=== PATIENT | female | born 1955 | race Caucasian/White ===

== ENCOUNTER 2021-01-10 08:28 | Outpatient (REF) | payer MEDICARE, BC, SELFPAY ==
--- NOTE | ~2021-01-10 | XR_ITS ---
EXAMINATION: XR SHOULDER, RIGHT CLINICAL INFORMATION: Right shoulder pain COMPARISON: None TECHNIQUE: The right shoulder is imaged in 4 views. FINDINGS: There is no fracture or dislocation. The glenohumeral joint appears normal. There is small spur inferior medial humeral head. No glenohumeral joint narrowing or erosive change. The acromioclavicular alignment is normal. There are no visible rotator cuff calcifications. XR/XR shoulder RT min 2V IMPRESSION: No joint narrowing or rotator cuff calcifications.
== END 2021-01-10 08:29 | disposition home or self-care (01) ==
LOC: HO.HMGCX 08:28
PROVIDERS: PCP Internal Medicine; Visit Provider Internal Medicine
DX: M25.511 Pain in right shoulder (principal)
CPT/HCPCS: 73030

== ENCOUNTER 2021-04-07 07:20 | Outpatient (REF) | payer MEDICARE, BC, SELFPAY ==
--- NOTE | ~2021-04-07 | MM_ITS ---
EXAMINATION: MM SCREENING DIGITAL BREAST TOMOSYNTHESIS, BILATERAL CLINICAL INFORMATION: Screening. Asymptomatic. The lifetime risk of breast cancer based on the Tyrer-Cuzick Model is 4%. COMPARISON: Mammography: 04/05/2020, 04/03/2019, 09/28/2018 TECHNIQUE: Digital breast tomosynthesis is performed in both the craniocaudal and mediolateral oblique views along with computer-aided detection (CAD). Synthesized 2D images are generated from the tomosynthesis. FINDINGS: There are scattered areas of fibroglandular density (ACR BI-RADS breast composition Category b). There are no significant masses, abnormal calcifications, or other abnormalities. Parenchymal pattern is similar to prior studies. There is no developing density. No abnormal calcifications. No significant changes. MM/MM tomosynthesis screening BI IMPRESSION: No mammographic evidence of malignancy. ASSESSMENT: BI-RADS 1: Negative RECOMMENDATION: Routine annual mammography screening. This patient's information was entered into a reminder system with a target due date for their next mammogram.
== END 2021-04-07 07:21 | disposition home or self-care (01) ==
LOC: HO.MAMMO 07:20
PROVIDERS: PCP Internal Medicine; Visit Provider Internal Medicine
DX: Z12.31 Encounter for screening mammogram for malignant neoplasm of breast (principal)
CPT/HCPCS: 77063; 77067

== ENCOUNTER 2021-04-29 08:37 | Outpatient (REF) | payer MEDICARE, BC, SELFPAY ==
[2021-04-29 11:19] LABS: Glucose Urine UA NEG (NEG); Leukocyte Esterase Urine NEG (NEG); Nitrite Urine NEG (NEG); Specific Gravity - Urine <= 1.005 (1.005-1.025); Urine Blood NEG (NEG); Urine Ketones NEG (NEG); Urine Protein NEG (NEG-TRACE)
[2021-04-29 11:22] LABS: Appearance Urine CLEAR; Color Urine YELLOW
[2021-04-29 11:23] LABS: Hematocrit 42.2 % (37-47); Hemoglobin 13.8 g/dl (12.0-16.0); Mean Corpuscular HGB Conc 32.7 g/dl (31.0-35.0); Mean Corpuscular Hemoglobin 30.3 pg (27.0-33.0); Mean Corpuscular Volume 92.7 fL (80-98); Platelet Count 375 X10*3/uL (160-400); Red Blood Count 4.55 X10*6/uL (4.20-5.50); Red Cell Distribution Width 12.4 % (11.0-16.0); White Blood Count 7.2 X10*3/uL (4.8-10.8)
[2021-04-29 11:38] LABS: Alanine Aminotransferase 16 U/L (0-31); Albumin Level 4.3 g/dL (3.5-5.0); Alkaline Phosphatase 75 U/L (39-117); Anion Gap 12 (12-20); Aspartate Amino Transferase 23 U/L (5-31); Bilirubin Total 0.7 mg/dL (0.0-1.0); Blood Urea Nitrogen 11 mg/dL (9-16); Calcium 9.1 mg/dL (8.4-10.2); Carbon Dioxide 27 mmol/L (22-29); Chloride 101 mmol/L (96-108); Cholesterol 217 mg/dL; Estimated Glomerular Filt Rate > 60; Glucose Fasting 87 mg/dL (60-99); HDL Cholesterol 47 mg/dL; LDL Cholesterol Calculated 153 mg/dl; Potassium 4.6 mmol/L (3.3-5.1); Sodium 135 mmol/L (135-145); Total Protein 7.2 g/dL (6.5-8.0); Triglycerides 88 mg/dL
== END 2021-04-29 08:38 | disposition home or self-care (01) ==
LOC: HO.HMGCLDS 08:37
PROVIDERS: PCP Internal Medicine; Visit Provider Internal Medicine
DX: E55.9 Vitamin D deficiency, unspecified (principal); E78.5 Hyperlipidemia, unspecified
CPT/HCPCS: 36415; 80053; 80061; 81003; 85027

== ENCOUNTER 2021-05-05 11:21 | Outpatient (REF) | payer MEDICARE, BC, SELFPAY ==
[2021-05-08 13:17] LABS: HPV mRNA E6/E7 Not Detected (Not Detected)
== END 2021-05-05 11:22 | disposition home or self-care (01) ==
LOC: HO.LAB 11:21
PROVIDERS: Visit Provider Internal Medicine
DX: Z01.419 Encounter for gynecological examination (general) (routine) without abnormal findings (principal); E78.5 Hyperlipidemia, unspecified; E55.9 Vitamin D deficiency, unspecified; Z78.0 Asymptomatic menopausal state
CPT/HCPCS: 87624; 88142

== ENCOUNTER 2021-06-04 08:11 | Outpatient (REF) | payer MEDICARE, BC, SELFPAY ==
--- NOTE | ~2021-06-04 | MM_ITS ---
EXAMINATION: BONE DENSITOMETRY CLINICAL INDICATION: Menopause. COMPARISON: This is the patient's baseline examination. TECHNIQUE: Using a [employer] DXA System (software version: 13.1) manufactured by [employer], dual-energy x-ray absorptiometry was performed of the lumbar spine and left hip. The images are of good technical quality. Summary results are attached. FINDINGS: AP SPINE L1-L4: BMD 1.140 g/cm2, Z-score 1.6, T-score -0.3, normal. LEFT FEMUR, NECK: BMD 0.783 g/cm2, Z-score -0.1, T-score -1.8, osteopenia. LEFT FEMUR, TOTAL: BMD 0.900 g/cm2, Z-score 0.7, T-score -0.9, normal. IDENTIFIED RISK FACTORS: Menopause. HISTORY OF FRACTURE: None listed. MEDICATIONS: Calcium or multivitamin. Vitamin D. MM/XR DEXA axial skeleton IMPRESSION: 1. DIAGNOSIS: Osteopenia based on the lowest T-score value of -1.8 in the femoral neck applying World Health Organization criteria. 2. 10-YEAR FRACTURE RISK PREDICTION, FRAX: Major osteoporotic fracture (clinical spine, forearm, hip or shoulder) 10.6%. Hip fracture 1.7%. 3. Treatment Recommendations: NOF guidelines recommend consideration for treatment in postmenopausal women and men age 50 and older presenting with the following: -A hip or vertebral (clinical or morphometric) fracture. -T-score less than or equal to -2.5 at the femoral neck or spine after appropriate evaluation to exclude secondary causes. -Low bone mass at the hip or spine and a 10-year fracture probability by FRAX of greater than or equal to 3% for hip fracture or greater than or equal to 20% for major osteoporotic fracture based on the [place] adapted WHO algorithm. 4. Other Recommendations: All treatment decisions require clinical judgment and consideration of individual patient factors, including patient preferences, comorbidities, previous drug use, risk factors not captured in the FRAX model (e.g. frailty, falls, vitamin D deficiency, increased bone turnover, interval significant decline in bone density) and possible under or overestimation of fracture risk by FRAX. Additional medical evaluation for secondary cause of low bone mineral density may be appropriate. FUTURE SCAN RECOMMENDATION: People with diagnosed cases of osteoporosis or at high risk for fracture should have regular bone mineral density tests. For patients eligible for Medicare, routine testing is allowed once every 2 years. The testing frequency can be increased to one year for patients who have rapidly progressing disease, those who are receiving or discontinuing medical therapy to restore bone mass, or have additional risk factors.
== END 2021-06-04 08:12 | disposition home or self-care (01) ==
LOC: HO.MAMMO 08:11
PROVIDERS: Visit Provider Internal Medicine
DX: Z13.820 Encounter for screening for osteoporosis (principal); E78.5 Hyperlipidemia, unspecified; Z78.0 Asymptomatic menopausal state
CPT/HCPCS: 77080

== ENCOUNTER → 2021-08-05 09:59 | Outpatient (BNVA) | payer MEDICARE, BC, SELFPAY | PROVIDERS: Visit Provider Physician Assistant | DX: M75.101 Unspecified rotator cuff tear or rupture of right shoulder, not specified as traumatic (principal) | CPT/HCPCS: 99202 ==

== ENCOUNTER 2021-08-12 07:28 | Outpatient (REF) | payer MEDICARE, BC, SELFPAY ==
--- NOTE | ~2021-08-12 | MR_ITS ---
EXAMINATION: MR SHOULDER WITHOUT CONTRAST, RIGHT CLINICAL INFORMATION: Right shoulder pain with pain radiating to the right elbow. Evaluate for a rotator cuff tendon tear. COMPARISON: Right shoulder radiographs dated 01/10/2021 TECHNIQUE: MRI of the shoulder without contrast was performed on a high-field scanner. FINDINGS: ROTATOR CUFF: Complete full-thickness tear of the supraspinatus tendon with anterior full-thickness tearing extending through the majority of the distal infraspinatus tendon. Overall, tearing measures 3.2 x 3.1 cm (AP x ML) with the torn tendon fibers retracted proximal to the humeral head apex. There are posterior infraspinatus tendon fibers which remain intact. Moderate subscapularis tendinosis with distal articular surface and intrasubstance partial tearing measuring 3.4 cm in ML dimension. No muscle atrophy or fatty infiltration. BICEPS: Medial subluxation of the proximal long head biceps tendon through the subscapularis tendon tear. The tendon is significantly thickened and irregular, consistent with prominent tendinosis and longitudinal partial tearing. No full-thickness tendon tear or retraction. CORACOACROMIAL ARCH: The undersurface of the acromion is curved with subacromial spurring. Mild acromioclavicular osteoarthritis. LABRUM/CAPSULE: Normal. GLENOHUMERAL JOINT/MARROW: Humeral head and glenoid articular cartilage signal heterogeneity and partial-thickness loss. Small marginal osteophytes. Small joint effusion. MR/MR shoulder RT wo con IMPRESSION: 1. Complete, full-thickness tear of the supraspinatus tendon with anterior full-thickness tearing of the infraspinatus tendon measuring up to 3.2 x 3.1 cm (AP x ML). The torn tendon fibers are retracted proximal to the humeral head apex. 2. Moderate subscapularis tendinosis with distal articular surface and intrasubstance partial tearing measuring 3.4 cm in ML dimension. 3. Medial subluxation of the proximal long head biceps tendon through the subscapularis tendon tear with prominent tendinosis and longitudinal partial tearing. 4. Mild acromioclavicular osteoarthritis with small subacromial spurs. 5. Mild glenohumeral osteoarthritis. Small joint effusion.
== END 2021-08-12 07:29 | disposition home or self-care (01) ==
LOC: HO.MRI 07:28
PROVIDERS: PCP Internal Medicine; Visit Provider Physician Assistant
DX: M75.101 Unspecified rotator cuff tear or rupture of right shoulder, not specified as traumatic (principal)
CPT/HCPCS: 73221

== ENCOUNTER → 2021-08-29 10:24 | Outpatient (BNVA) | payer MEDICARE, BC, SELFPAY | PROVIDERS: PCP Internal Medicine; Visit Provider Physician Assistant | DX: M75.101 Unspecified rotator cuff tear or rupture of right shoulder, not specified as traumatic (principal); M12.811 Other specific arthropathies, not elsewhere classified, right shoulder | CPT/HCPCS: 99212 ==

== ENCOUNTER 2021-09-17 05:57 | Day surgery (SDC) | payer MEDICARE, BC, SELFPAY ==
[2021-09-10 12:22] VITALS: BMI 24.2
--- NOTE | 2021-09-16 08:53 | HO.ANESPROP2 ---
Documented by User: Loree Haq NP 09/16/21 08:55 HPI - Anesthesia Eval Consult details Narrative: 66yo F for Right Shoulder Rotator Cuff Repair PMFSH Active Problems Active Problems: All Active Problems (Updated 08/29/21 @ 12:29 by Vear Godinez PA-C) Abrasion of breast (Acute) Painful arc syndrome of right shoulder (Acute) Rotator cuff tear arthropathy of right shoulder (Acute) Annual physical exam (Acute) Postmenopausal (Acute) Shoulder pain, right (Acute) Mammogram normal (Acute) Normal Pap smear (Acute) Vitamin D deficiency (Acute) Hyperlipemia (Acute) Dysplastic nevi (Acute) Past Medical History Medical History (Updated 08/29/21 @ 12:29 by Vera Godinez PA-C) Annual physical exam Dysplastic nevi Hyperlipemia Mammogram normal Normal Pap smear Postmenopausal Shoulder pain, right Vitamin D deficiency Family History Family History Father No problems noted. Mother Ovarian cancer Surgical History Surgical History (Updated 09/10/21 @ 12:11 by Connie Marquez RN) H/O colonoscopy S/P bunionectomy Social History Social History Housing: House Alcohol intake: never Patient Tobacco Use Status: Never used Tobacco e-Cigarette/Vaping Use: Never Used Use of substances other than those prescribed or required for medical reasons: No Advance Directives Information Provided: Yes (informational brochure mailed) Advance Directives on File: No Current occupational status: retired Current occupation: rt handed Meds Allergies Allergy/AdvReac Type Severity Reaction Status Date / Time No Known Allergies Allergy Verified 08/29/21 10:33 [No Known Allergies*] Home Medications Medication Instructions Recorded Confirmed Last Taken Type cholecalciferol (vitamin D3) 25 25 mcg PO DAILY 07/31/20 09/10/21 Unknown History mcg (1,000 unit) capsule vitamin B complex (B 1 tab PO DAILY 01/10/21 09/10/21 Unknown History Complex-Vitamin B12) aspirin 81 mg tablet,delayed 81 mg PO DAILY 05/05/21 09/10/21 Unknown History release omega 6-hlm-bqz-fish oil 100 1 cap PO DAILY 08/05/21 09/10/21 Unknown History mg-160 mg-1,000 mg capsule (Fish Oil) Exam Exam Date and Time: September 16, 2021 0853 Height,Weight and Vital Signs: Height 5 ft Weight 56.245 kg Pertinent Lab Results Pertinent Lab Results: Laboratory Tests 04/29/21 04/29/21 08:48 08:48 WBC 7.2 Hgb 13.8 Hct 42.2 Plt Count 375 Sodium 135 Potassium 4.6 Chloride 101 Carbon Dioxide 27 BUN 11 Creatinine 0.69 Assessment and Plan Assessment Anesthesia Assessment: Chart Reviewed Documented by User: Greg Espitia MD 09/17/21 07:14 PMFSH Past Medical History Medical History (Updated 08/29/21 @ 12:29 by Vera Godinez PA-C) Annual physical exam Dysplastic nevi Hyperlipemia Mammogram normal Normal Pap smear Postmenopausal Shoulder pain, right Vitamin D deficiency Family History Family History Father No problems noted. Mother Ovarian cancer Surgical History Surgical History (Updated 09/10/21 @ 12:11 by Connie Marquez RN) H/O colonoscopy S/P bunionectomy Social History Social History Housing: House Alcohol intake: never Patient Tobacco Use Status: Never used Tobacco e-Cigarette/Vaping Use: Never Used Use of substances other than those prescribed or required for medical reasons: No Advance Directives Information Provided: Yes (informational brochure mailed) Advance Directives on File: No Current occupational status: retired Current occupation: rt handed Meds Allergies Allergy/AdvReac Type Severity Reaction Status Date / Time No Known Allergies Allergy Verified 08/29/21 10:33 [No Known Allergies*] Home Medications Medication Instructions Recorded Confirmed Last Taken Type cholecalciferol (vitamin D3) 25 25 mcg PO DAILY 07/31/20 09/10/21 Unknown History mcg (1,000 unit) capsule vitamin B complex (B 1 tab PO DAILY 01/10/21 09/10/21 Unknown History Complex-Vitamin B12) aspirin 81 mg tablet,delayed 81 mg PO DAILY 05/05/21 09/10/21 Unknown History release omega 0-jtl-wiz-fish oil 100 1 cap PO DAILY 08/05/21 09/10/21 Unknown History mg-160 mg-1,000 mg capsule (Fish Oil) Exam Airway Mallampati Class: II TM Dist: >3cm Neck ROM: Full
[2021-09-17] VITALS (8 sets, daily range): BP systolic 146–164; BP diastolic 65–74; PULSE 66–77; RESP 12–18; TEMP 36.2–36.4; O2SAT 95–99
[2021-09-17] MEDS: Lactated Ringers 1,000 ML 100 ML IVCONT (06:34)
--- NOTE | 2021-09-17 09:52 | MHC.SHP ---
Pre-Procedural Eval Section A Date of Service: 09/17/21 The patient is an INPATIENT: No Changes since office visit: Yes Patient answered all questions; No Cold of Flu in the past 2 weeks, No New Medical Problems and No Changes in Medication The History & Physical has been completed within 30 days and I have reviewed it.: Yes Section B Chief Complaint: rotator cuff tear Allergies: Allergies Allergy/AdvReac Type Severity Reaction Status Date / Time No Known Allergies Allergy Verified 08/29/21 10:33 [No Known Allergies*] Plan I have reviewed the history and physical and performed a pertinent physical examination on my patient. No changes have occurred unless specified.
--- NOTE | 2021-09-17 09:52 | PM.OP ---
Brief Operative Note Date of Service: 09/17/21 Pre-op diagnosis: right rtc tear Post-op diagnosis: other (1)supraspinatus and infraspinatus tear 2) subscapularis tear 3) SLAP tear) Procedure: 1) Supraspinatus and infraspinatus repair 2)Subscapularis repair 3) Biceps tenotomy 4) SAD 5)Circumerential labral debridement Implants: [employer] 4.75 helacoil double loaded suture anchor x2; 5.0 Knotleess helacoil x3; looped suture implant (styrker); suture tape x2 Surgeon: Gavin Torres MD Anesthesia: GETA and regional Was an Company Laborer used for this Procedure?: Yes Company Laborer: Vera Godinez Estimated blood loss (mL): 0 Tourniquet time (min): 0 IV fluids (mL): 1,000 Pathology: none sent Condition: stable Disposition: PACU
--- NOTE | 2021-09-17 09:56 | W.PM.OPN ---
Operative Note Operative Note Date of Service: 09/17/21 Narrative: Pre-op diagnosis: right rtc tear Post-op diagnosis: other (1)supraspinatus and infraspinatus tear 2) subscapularis tear 3) SLAP tear) Procedure: 1) Supraspinatus and infraspinatus repair 2)Subscapularis repair 3) Biceps tenotomy 4) SAD 5)Circumerential labral debridement Implants: [employer]hew 4.75 helacoil double loaded suture anchor x2; 5.0 Knotless helacoil x3; looped suture implant (styrker); suture tape x2 Surgeon: Gavin Torres MD Anesthesia: GETA and regional Was an User Experience Architect used for this Procedure?: Yes User Experience Architect: Vera Godinez Estimated blood loss (mL): 0 Tourniquet time (min): 0 IV fluids (mL): 1,000 Pathology: none sent Condition: stable Disposition: PACU Procedure in detail: Patient was brought to the operating room and placed the the beach chair position. All bony prominences were well padded and the limb was prepped and draped in standard sterile fashion. A time out was called to identify proper site, proper procedure and proper surgeon. IV antibiotics per weight were administered. I began by making a posterolateral stab incision with a 15 blade. A blunt trochar was placed into the glenohumeral joint and I insufflated the joint with saline and a 30 degree arthroscope was placed. I established an outside- in anterior portal just distal to the biceps tendon. I then began my inspection of the glenohumeral joint. There was mild osteoarthritis of the glenohumeral joint with no thigh focal high-grade cartilage lesions. She had a superior labral tear with 75% of the biceps anchor torn at. This tearing extended down into the subscapularis insertion where there was a full-thickness tear of the subscapularis as well. I debrided extraneous tissue and circumferentially debrided the labrum. There was a large undersurface supraspinatus / infraspinatus tear as well. a performed a biceps tenotomy and mobilize the subscapularis with superior anterior and posterior lysis of adhesions. Tear was mobile and I was able to reapproximate the insertion site. A nadira was used to debride this down to bleeding bone. I placed 2 suture tapes through the body of the subscapularis and placed a 5.0 helical oil suture at the insertion site and inserted this in standard fashion while the arm was slight internally rotated. I had excellent re-approximation of the anatomy of the subscapularis and was satisfied with the repair. I then removed the trochar and entered the subacromial space. A direct lateral portal was then established and I performed a bursectomy. The cuff was then examined. There was a supraspinatus and infraspinatus full-thickness retracted tear that was mobile. I then placed 2 4.75 medial row Helacoil double loaded suture anchors. These sutures were then passed through the cuff with a scorpion and then a cross bridge technique to 2 lateral 5.0 knotless suture anchors. A nadira was used to debride the footprint down to bleeding bone prior to this. I was extremely satisfied with the repair and a 4-5 mm sub actromial decompression was perfromed.Once I was satisfied with the repair final images were captured and I removed all instrumentation. Portals were closed with nylon. Patient was placed in an abduction sling, extubated and brought to the recovery room in stable condition. There were no known complications.
[2021-09-17] MEDS: oxyCODONE HCl Immed Release 5 MG TABLET PO (10:49)
== END 2021-09-17 11:50 | disposition home or self-care (01) ==
PROVIDERS: PCP Internal Medicine; Visit Provider Orthopaedic Surgery
PROC: (CPT 29827; principal; 2021-09-17 07:30)
DX: M75.101 Unspecified rotator cuff tear or rupture of right shoulder, not specified as traumatic (principal); M12.811 Other specific arthropathies, not elsewhere classified, right shoulder; M25.511 Pain in right shoulder; E55.9 Vitamin D deficiency, unspecified; D23.9 Other benign neoplasm of skin, unspecified; Z79.82 Long term (current) use of aspirin; Z79.899 Other long term (current) drug therapy
CPT/HCPCS: 29827; 29826; C1713; J0171; J0690; J1100; J2250; J2405; J3010

== ENCOUNTER → 2021-09-29 08:32 | Outpatient (BNVA) | payer MEDICARE, BC, SELFPAY | PROVIDERS: PCP Internal Medicine; Visit Provider Physician Assistant | DX: Z98.890 Other specified postprocedural states (principal) | CPT/HCPCS: 99212 ==

== ENCOUNTER 2021-10-21 08:45 | Outpatient (REF) | payer MEDICARE, BC, SELFPAY ==
[2021-10-21 12:03] LABS: Cholesterol 240 mg/dL; HDL Cholesterol 51 mg/dL; LDL Cholesterol Calculated 170 mg/dl; Triglycerides 99 mg/dL
== END 2021-10-21 08:46 | disposition home or self-care (01) ==
LOC: HO.HMGCLDS 08:45
PROVIDERS: PCP Internal Medicine; Visit Provider Internal Medicine
DX: E78.5 Hyperlipidemia, unspecified (principal)
CPT/HCPCS: 36415; 80061

== ENCOUNTER → 2021-10-27 08:26 | Outpatient (BNVA) | payer MEDICARE, BC, SELFPAY | PROVIDERS: PCP Internal Medicine; Visit Provider Physician Assistant | DX: Z48.89 Encounter for other specified surgical aftercare (principal); Z98.890 Other specified postprocedural states | CPT/HCPCS: 99212 ==

== ENCOUNTER 2021-12-17 10:00 | Outpatient (RCR) | payer MEDICARE, BC, SELFPAY ==
--- NOTE | 2021-09-22 14:44 | MHC.PT.EP ---
[facility] [place] Office [place] Office [place] Office [address] Monalisa Simmons [address] [phone] F: [phone] F: [phone] F: [phone] F: [phone] Physical Therapy Plan of Care Date of Evaluation: Date of Surgery: 09/17/21 Diagnosis: RIGHT ROTATOR CUFF REPAIR (SUPRASPINATUS, INFRASPINATUS, SUB SCAP REPAIR, BICEPS TENOTOMY, LABRAL DEBRIDEMENT AND SAD) Assessment: Pt 66 YO FEMALE WHO PRESENTS S/P RCR 09/17. UPON EXAM SHE DEMONSTRATES EXPECTED IMPAIRMENTS OF DECREASED ROM, DECREASED STRENGTH, ALTERED POSTURE AND POSITIONING WELL INCREASED PAIN AND SWELLING. FUNCTIONAL LIMITATIONS INCLUDE DECREASED ABILITY TO PERFORM LIFTING, REACHING, PUSHING, PULLING AND CARRYING. SHE HAVING DIFFICULTY PERFORMING HOMEMAKING AND SELF CARE TASKS, FITNESS AND RECREATIONAL ACTIVITIES, SHE REPORTS DISRUPTED SLEEP. A PT IS A GOOD CANDIDATE FOR SKILLED PT DUE TO AGE, POTENTIAL REMEDIATION OF IMPAIRMENTS, TYPICAL DISEASE/CONDITION PROGRESSION AND PROGNOSIS, COMORBIDITIES, AND MOTIVATION. PT WOULD BENEFIT FROM TAILORED PROGRAM OF THERAPEUTIC ACTIVITIES, FUNCTIONAL TRAINING, GAIT TRAINING, POSTURAL EDUCATION, NEUROMUSCULAR RE-EDUCATION, AND MODALITIES NEEDED. Frequency and Duration: The patient will be seen 2 X WEEK FOR 12 WEEKS Short Term Goals: INITIATE HEP AND PROMOTE SELF MANAGEMENT OF SYMPTOMS IN 2 WEEKS Nursing Home Goals: Full, pain free ROM in weeks Full UE strength, pain free in 5 weeks To perform computer and work tasks without restriction and pain no greater than 2/10 [address] at minimum of 5# into cabinet at shoulder height in 5 weeks Treatment Plan: Modalities to reduce pain, spasms and effusion. Manual therapy to restore motion and function. Therapeutic exercise to improve strength and flexibility. Neuromuscular re-education for posture and balance. Therapeutic activities to return to functional activities of daily living. Electronically signed by: TALAT BRIZUELA PT, DPT Please sign and return to therapist. Thank you for your referral.
--- NOTE | 2021-12-17 10:53 | MHC.PT.DC ---
[facility] [place] Office [place] Office [place] Office [address] Monalisa Simmons [address] [phone] F: [phone] F: [phone] F: [phone] F: [phone] Physical Therapy Discharge Report Diagnosis: RIGHT ROTATOR CUFF REPAIR (SUPRASPINATUS, INFRASPINATUS, SUB SCAP REPAIR, BICEPS TENOTOMY, LABRAL DEBRIDEMENT AND SAD) Date of Surgery: 09/17/21 Date of Evaluation: 09/22/21 Date of Discharge: 12/17/21 Treatments to Date: 21 Cancellations to Date: 0 No Shows to Date: 0 Discharge Status: Achieved Goals Improved Function Independent with HEP Discharge Summary: 12/17: Debra has had a very successful round of therapy. She demos WFL ROM and strength. AROM is WFL however she needs to continue to strengthen which I educated her on. She is very independent and functional. At this time she does not have more than a 1/10 for pain. Patient has returned to her baseline and is I in ADLs and IADLs. SPADI score has improved to a 1/50 for pain and 1/80 for disability. DC to HEP Electronically signed by: Jeannie Lopez PT Please sign and return to therapist. Thank you for your referral.
== END 2021-12-17 10:54 | disposition home or self-care (01) ==
LOC: HO.PTCHIC 10:00
PROVIDERS: Visit Provider Physician Assistant
DX: M75.101 Unspecified rotator cuff tear or rupture of right shoulder, not specified as traumatic (principal); M12.811 Other specific arthropathies, not elsewhere classified, right shoulder
CPT/HCPCS: 97110; 97140; 97161; 97530

== ENCOUNTER → 2021-12-22 09:11 | Outpatient (BNVA) | payer MEDICARE, BC, SELFPAY | PROVIDERS: PCP Internal Medicine; Visit Provider Physician Assistant | DX: Z09 Encounter for follow-up examination after completed treatment for conditions other than malignant neoplasm (principal) | CPT/HCPCS: 99212 ==

== ENCOUNTER 2022-04-08 07:24 | Outpatient (REF) | payer MEDICARE, BC, SELFPAY ==
--- NOTE | ~2022-04-08 | MM_ITS ---
EXAMINATION: MM SCREENING DIGITAL BREAST TOMOSYNTHESIS, BILATERAL CLINICAL INFORMATION: Screening. Asymptomatic. The lifetime risk of breast cancer based on the Tyrer-Cuzick Model is 4%. COMPARISON: Mammography: 04/07/2021, 04/05/2020, 04/03/2019 TECHNIQUE: Digital breast tomosynthesis is performed in both the craniocaudal and mediolateral oblique views along with computer-aided detection (CAD). Synthesized 2D images are generated from the tomosynthesis. Additional bilateral CC views are provided. FINDINGS: There are scattered areas of fibroglandular density (ACR BI-RADS breast composition Category b). There are no significant masses, abnormal calcifications, or other abnormalities. There is no developing density or architectural abnormality. No significant changes from prior studies. The axilla and skin contours are unremarkable. MM/MM tomosynthesis screening BI IMPRESSION: No mammographic evidence of malignancy. ASSESSMENT: BI-RADS 1: Negative RECOMMENDATION: Routine annual mammography screening. This patient's information was entered into a reminder system with a target due date for their next mammogram.
== END 2022-04-08 07:25 | disposition home or self-care (01) ==
LOC: HO.MAMMO 07:24
PROVIDERS: Visit Provider Internal Medicine
DX: Z12.31 Encounter for screening mammogram for malignant neoplasm of breast (principal)
CPT/HCPCS: 77063; 77067

== ENCOUNTER 2022-05-05 07:52 | Outpatient (REF) | payer MEDICARE, BC, SELFPAY ==
[2022-05-05 11:32] LABS: Hematocrit 43.1 % (37.0-47.0); Mean Corpuscular HGB Conc 32.5 g/dl (31.0-35.0); Mean Corpuscular Hemoglobin 30.3 pg (27.0-33.0); Mean Corpuscular Volume 93.3 fL (80.0-98.0); Platelet Count 403 X10*3/uL (160-400); Red Blood Count 4.62 X10*6/uL (4.20-5.50); Red Cell Distribution Width 12.6 % (11.0-16.0); White Blood Count 5.2 X10*3/uL (4.8-10.8)
[2022-05-05 11:41] LABS: Alanine Aminotransferase 18 U/L (0-31); Albumin Level 4.5 g/dL (3.5-5.0); Alkaline Phosphatase 82 U/L (39-117); Anion Gap 11 (12-20); Aspartate Amino Transferase 22 U/L (5-31); Bilirubin Total 0.7 mg/dL (0.0-1.0); Blood Urea Nitrogen 10 mg/dL (9-16); Carbon Dioxide 27 mmol/L (22-29); Chloride 105 mmol/L (96-108); Cholesterol 232 mg/dL; Estimated Glomerular Filt Rate > 60; Glucose Fasting 91 mg/dL (60-99); HDL Cholesterol 47 mg/dL; LDL Cholesterol Calculated 169 mg/dl; Potassium 4.8 mmol/L (3.3-5.1); Sodium 138 mmol/L (135-145); Total Protein 7.4 g/dL (6.5-8.0); Triglycerides 81 mg/dL
[2022-05-05 12:06] LABS: Vitamin D 25-OH Total 35.9 ng/mL (>30)
== END 2022-05-05 07:53 | disposition home or self-care (01) ==
LOC: HO.HMGCLDS 07:52
PROVIDERS: Visit Provider Internal Medicine
DX: Z00.00 Encounter for general adult medical examination without abnormal findings (principal); E55.9 Vitamin D deficiency, unspecified; E78.5 Hyperlipidemia, unspecified; Z78.0 Asymptomatic menopausal state
CPT/HCPCS: 36415; 80053; 80061; 82306; 84443; 85027

== ENCOUNTER 2022-05-11 09:39 | Outpatient (REF) | payer MEDICARE, BC, SELFPAY ==
[2022-05-14 12:26] LABS: HPV mRNA E6/E7 Not Detected (Not Detected)
== END 2022-05-11 09:40 | disposition home or self-care (01) ==
LOC: HO.LAB 09:39
PROVIDERS: Visit Provider Internal Medicine
DX: Z12.4 Encounter for screening for malignant neoplasm of cervix (principal); Z11.51 Encounter for screening for human papillomavirus (HPV)
CPT/HCPCS: 87624; 88142

== ENCOUNTER 2023-04-12 07:34 | Outpatient (REF) | payer MEDICARE, BC, SELFPAY ==
--- NOTE | ~2023-04-12 | MM_ITS ---
EXAMINATION: MM SCREENING DIGITAL BREAST TOMOSYNTHESIS, BILATERAL CLINICAL INFORMATION: Screening. Asymptomatic. The lifetime risk of breast cancer based on the Tyrer-Cuzick Model is 4%. COMPARISON: Mammography: 04/08/2022, 04/07/2021, 04/05/2020 TECHNIQUE: Digital breast tomosynthesis is performed in both the craniocaudal and mediolateral oblique views along with computer-aided detection (CAD). Synthesized 2D images are generated from the tomosynthesis. FINDINGS: There are scattered areas of fibroglandular density (ACR BI-RADS breast composition Category b). There are no significant masses, abnormal calcifications, or other abnormalities. Parenchymal pattern is similar to prior studies. There is no developing density or architectural abnormality. The axilla and skin contours are unremarkable. No significant changes. MM/MM tomosynthesis screening BI IMPRESSION: No mammographic evidence of malignancy. ASSESSMENT: BI-RADS 1: Negative RECOMMENDATION: Routine annual mammography screening. This patient's information was entered into a reminder system with a target due date for their next mammogram.
== END 2023-04-12 07:35 | disposition home or self-care (01) ==
LOC: HO.MAMMO 07:34
PROVIDERS: PCP Internal Medicine; Visit Provider Internal Medicine
DX: Z12.31 Encounter for screening mammogram for malignant neoplasm of breast (principal)
CPT/HCPCS: 77063; 77067

== ENCOUNTER 2023-05-04 07:24 | Outpatient (REF) | payer MEDICARE, BC, SELFPAY ==
[2023-05-04 11:20] LABS: MANUAL DIFF FLAG NO
[2023-05-04 11:31] LABS: Basophils Percent Auto 0.6 % (0-2); Eosinophils Absolute Auto 0.2 X10*3/uL (0.0-0.4); Eosinophils Percent Auto 2.7 % (0-4); Hematocrit 40.3 % (37.0-47.0); Hemoglobin 13.3 g/dl (12.0-16.0); Imm Gran Abs Auto 0.01 X10*3/uL (0.00-0.03); Imm Gran Pct Auto 0.2 % (0.0-0.4); Lymphocytes Percent Auto 31.8 % (20-40); Mean Corpuscular Hemoglobin 30.4 pg (27.0-33.0); Mean Corpuscular Volume 92.2 fL (80.0-98.0); Mean Platelet Volume 10.3 fL (9.4-12.3); Monocytes Absolute Auto 0.5 X10*3/uL (0.1-1.2); Monocytes Percent Auto 7.7 % (2-11); Neutrophils Absolute Auto 3.7 x10*3/uL (2.0-8.3); Platelet Count 366 X10*3/uL (160-400); Red Blood Count 4.37 X10*6/uL (4.20-5.50); Red Cell Distribution Width 12.5 % (11.0-16.0); White Blood Count 6.4 X10*3/uL (4.8-10.8)
[2023-05-04 12:04] LABS: Alanine Aminotransferase 28 U/L (0-31); Alkaline Phosphatase 74 U/L (39-117); Anion Gap 12 (12-20); Aspartate Amino Transferase 29 U/L (5-31); Bilirubin Total 0.7 mg/dL (0.0-1.0); Blood Urea Nitrogen 14 mg/dL (9-16); Calcium 9.4 mg/dL (8.4-10.2); Carbon Dioxide 23 mmol/L (22-29); Chloride 106 mmol/L (96-108); Cholesterol 197 mg/dL; Estimated Glomerular Filt Rate > 60; Glucose Fasting 89 mg/dL (60-99); HDL Cholesterol 44 mg/dL; LDL Cholesterol Calculated 134 mg/dl; Potassium 4.3 mmol/L (3.3-5.1); Sodium 137 mmol/L (135-145); Total Protein 6.7 g/dL (6.5-8.0); Triglycerides 98 mg/dL
[2023-05-04 12:07] LABS: TSH reflex Free T4 3.32 uIU/mL (0.32-4.0)
== END 2023-05-04 07:25 | disposition home or self-care (01) ==
LOC: HO.HMGCLDS 07:24
PROVIDERS: PCP Internal Medicine; Visit Provider Internal Medicine
DX: Z00.00 Encounter for general adult medical examination without abnormal findings (principal); Z78.0 Asymptomatic menopausal state; E78.5 Hyperlipidemia, unspecified
CPT/HCPCS: 36415; 80053; 80061; 84443; 85025

== ENCOUNTER 2023-05-12 08:46 | Outpatient (AMB) | payer MEDICARE, BC, SELFPAY ==
--- NOTE | 2023-05-12 09:24 | A.OFFVIS_ITS ---
Intake Vital Signs 05/12/23 09:25 Height 5 ft 5 in Weight 125 lb BMI 20.8 BP 110/68 Blood Pressure Location Lt brachial Position Sitting Pulse 75 Pulse Source Pulse Oximeter Pulse Oximetry (%) 99 Oxygen Delivery Method Room Air Intake Visit Reasons: AWV/ last 05/11/22 Intake Note: Pt is here today for AWV. Allergies No Known Allergies [No Known Allergies*] Allergy (Verified 05/12/23 09:26) Medication List - Last Reconciled 05/12/23 by Solange Lora MD aspirin 81 mg PO .every other day cholecalciferol (vitamin D3) 25 mcg PO DAILY omega 6-pjr-fkq-fish oil 100-160-1,000 mg (Fish Oil) 1 cap PO DAILY vitamin B complex (B Complex-Vitamin B12 tablet) 1 tab PO DAILY HPI AWV/ last 05/11/22 HPI Details Pt presents for annual. She is going to [place] for 6 weeks in June Initiated the conversation about Advanced Directives. Advanced Directives help? patients prepare for current and future decisions about their medical treatment? and place of care. Discussed with patient that it is a process where a patients? current condition and prognosis are reviewed, their wishes for information? regarding their illness are elicited, and likely medical dilemmas are presented? and options discussed. The form can be amended as needed, reviewed yearly and? make changes as needed IPPE/AWV ? year old presents? for her ? Annual? Wellness Visit, initial visit.? Medical / Social History Reviewed? Past Medical History ?Yes? . ? [place]? of Care / Care Team list updated ?Yes . ? Surgical/Hospitalization? History ?Yes . ? Current Medications? (including OTC and supplements) ?Yes . ? Family History ?Yes? . ? Tobacco? Control form ?Yes . ? AUDIT-C (Alcohol use) form? ?Yes . ? Illicit drug use in Social? History ?Yes . ? Current diagnosis of? depression? ?No ? Appropriate PHQ2/PHQ9? completed ?Yes . ? Data entered by ?Medical? [employer] and reviewed by provider ? Fall Risk ? Fall? History? Have you had any falls with? injury in the past year? ?No . ? Have you had two or more? falls in the past year? ?No . ? Fall Risk Assessment: ?No? falls in the past year . ? HRA filled out by? the patient, reviewed by Provider and scanned. ? IPPE/AWV ? Balance? [place]? ?Yes . ? Tandem? walk ?Yes . ? Walk and? Turn ?Yes . ? Rise from? sit to stand ?Yes . ?Vision? Corrective? lens ?Yes ? Vision? screen ? Up-to-date, has an appointment [] for vision? screening and glaucoma screening ?Hearing? Whisper? test ?pass .? Initiated the conversation about Advanced Directives. Advanced Directives help? patients prepare for current and future decisions about their medical treatment? and place of care. Discussed with patient that it is a process where a patients? current condition and prognosis are reviewed, their wishes for information? regarding their illness are elicited, and likely medical dilemmas are presented? and options discussed. The form can be amended as needed, reviewed yearly and? make changes as needed Written? Plan?Completed. See Patient? Documents. [facility] Medical History (Updated 05/11/22 @ 09:39 by Solange Lora MD) Annual physical exam Dysplastic nevi Hyperlipemia Mammogram normal Normal Pap smear Postmenopausal Shoulder pain, right Vitamin D deficiency Surgical History H/O colonoscopy S/P bunionectomy Family History Father No problems noted. Mother Ovarian cancer Social History Housing: House Alcohol intake: never Patient Tobacco Use Status: Never used Tobacco e-Cigarette/Vaping Use: Never Used Current occupational status: retired Current occupation: rt handed Questionnaire Medicare Wellness Checkup [age] What gender do you identify with?: female During the past 4 weeks, how much have you been bothered by emotional problems such as feeling anxious, depressed, irritable, sad or downhearted, and blue?: not at all During the past 4 weeks, has your physical & emotional health limited your social activities with family, friends, neighbors, or groups?: not at all During the past 4 weeks, how much bodily pain have you generally had?: no pain During the past 4 weeks, was someone available to help you if you needed & wanted help?: no, not at all During the past 4 weeks, what was the hardest physical activity you could do for at least 2 minutes?: very light Can you get to places out of walking distance without help? (For eg., can you travel alone on buses, taxis or drive your car?): Yes Can you go shopping for groceries or clothes without someone's help?: Yes Can you prepare your own meals?: Yes Can you do your housework without help?: Yes Because of any health problems, do you need the help of another person with your personal care needs such as eating, bathing, dressing or getting around the house?: No Can you handle your own money without help?: Yes During the past 4 weeks, how would you rate your health in general?: excellent During the past 4 weeks how have things been going for you?: very well; could hardly better Are you having difficulties driving your car?: no Do you always fasten your seat belt when you are in a car?: yes, usually During past 4 weeks, have you been bothered by the following: never: Falling or dizzy when standing up, Sexual problems?, Trouble eating well?, Teeth or denture problems?, Problems using the telephone? and Tiredness or fatigue? Have you fallen 2 or more times in the past year?: No Are you afraid of falling?: No Are you a smoker?: no During the past 4 weeks, how many drinks of wine, beer, or other alcoholic beverages did you have?: 1 drink or less per week Do you exercise for about 20 minutes 3 or more times a week?: yes, most of the time Have you been given information to help with the following?: yes: Keeping track of your medications? and no: Hazards in your house that might hurt you? How often do you have trouble taking medicines the way you have been told to take them?: I do not have to take medicine How confident are you that you can control & manage most of your health pr oblems?: very confident What is your race?: White Mini Mental State Exam (MMSE) Orientation What is the (year) (season) (date) (day) (month)?: year, season, date, day and month Where are we (state) (county) (town or city) (hospital) (floor)?: state, county, town or city, hospital/clinic and floor Registration Name of 3 unrelated objects clearly and slowly, then ask patient to repeat all 3 of them. (1st repeat determines score. Make sure they can repeat all three): object 1, object 2 and object 3 Attention & Calculation (CHOOSE ONE) Ask pt to begin with 100 & count backward by 7. Stop after 5 repeats. If pt cannot ask them to spell the word WORLD backward.: 93 Spell WORLD backwards (DLROW): 5 letters Recall Ask patient to repeat the 3 items from question #3.: object 1, object 2 and object 3 Language Show patient a wristwatch & ask what it is. Repeat for pencil.: watch and pencil Ask the patient to repeat the phrase 'No ifs, ands, or buts' after you.: correct Ask the patient to 'take a piece of paper with their right hand' 'fold paper in half' 'place paper on floor': take paper in right hand, fold paper in half and place paper on floor Print the sentence 'CLOSE YOUR EYES' on a piece. If patient actually closes eyes then score.: followed written direction Give patient a blank piece of paper & ask to write a sentence. Score if it contains a noun & verb.: sentence contains subject and verb Ask patient to copy figure of intersecting pentagons exactly. Score if all 10 angles & 2 intersects are included.: all 10 angles present & 2 are intersected Score Score: 31 Activity of Daily Living Bathing - sponge bath, tub bath or shower: receives no assistance (gets in/out by self, if usual bathing means Dressing - getting clothes from closets & drawers, including inner/outer garments & fasteners.: gets clothes & gets completely dressed without help Toileting - going to the 'toilet room' for urine/bowel elimination & cleaning self/arranging clothes: goes to toilet room, cleans self, arranges clothes without help Transfer: moves in & out of bed and chair without help (may use support object) Continence: controls urination/bowel movements completely by self Feeding: feeds self without help Total Score: 0 Information obtained from: patient Using telephone: independent Traveling: independent Shopping: independent Preparing meals: independent Housework: independent Taking medicine: independent Managing money: independent PHQ-9 Over the last 2 weeks, how often have you been bothered by any of the following problems? 1. Little interest or pleasure in doing things: not at all 2. Feeling down, depressed, or hopeless: not at all 3. Trouble falling or staying asleep, or sleeping too much: not at all 4. Feeling tired or having little energy: not at all 5. Poor appetite or overeating: not at all 6. Feeling bad about yourself - or that you are a failure or have let yourself or your family down: not at all 7. Trouble concentrating on things, such as reading the newspaper or watching television: not at all 8. Moving or speaking so slowly that other people could have noticed. Or the opposite - being so fidgety or restless that you have been moving around a lot more than usual: not at all 9. Thoughts that you would be better off or of hurting yourself in some way: not at all Total score: 0 Depression Screening Interpretation: Negative Source: Developed by Drs. Jayme Pena, Tressa Carty, Zackary Newman and colleagues, with an educational raúl from [employer]. Review of Systems Const All systems reviewed & are unremarkable except as noted in HPI and below Reports no additional complaints Eyes Reports no additional complaints ENT Reports no additional complaints Card Reports no additional complaints Resp Reports no additional complaints GI Reports no additional complaints Reports no additional complaints Physical Exam Vital Signs: Last Vital Signs Pulse 75 05/12/23 09:25 BP 110/68 05/12/23 09:25 Pulse Ox 99 05/12/23 09:25 Oxygen Delivery Method Room Air 05/12/23 09:25 BMI result Body Mass Index 20.8 Const General: no acute distress HEENT Head: Yes normal to inspection Ears: hearing grossly normal bilaterally Face and sinus: Yes normal facial exam Mouth: Normal oral and palatal mucosa present Throat: Yes posterior oropharynx normal Eyes General: appearance normal, both eyes and all related structures Neck Neck: Yes no lymphadenopathy and Yes supple Chest Breast/axilla inspection: normal inspection of the breasts Breast/axilla palpation: normal palpation of the breasts Resp Effort & Inspection: normal respiratory effort Auscultation: clear to auscultation bilaterally Cardio Rhythm: regular rhythm Heart sounds: S1 normal heart sound present and S2 normal heart sound present GI Inspection: Yes normal to inspection Palpation (GI): Soft to palpation Percussion: Yes normal to percussion Auscultation: normal bowel sounds External Female Exam: normal external appearance Speculum Exam - Vagina: vagina atrophic Speculum Exam - Cervix: normal appearance of the cervix Bimanual exam- vagina & uterus: normal bimanual exam Extrem General: Yes no clubbing, cyanosis or edema Assessment & Plan Assessment & Plan (1) Annual physical exam: Code(s): Z00.00 - Encounter for general adult medical examination without abnormal findings Plan: Well-balanced diet regular physical activity discussed with the patient. She is up-to-date with mammogram colonoscopy and DEXA. Return in 1 year with fasting labs before. Pap smear was done today Orders: Orders Comprehensive [place]. Panel Fast 365 Days E55.9 - Vitamin D deficiency, unspecified, E78.5 - Hyperlipidemia, unspecified, Z00.00 - Encounter for general adult medical examination without abnormal findings Lipid Panel 365 Days E55.9 - Vitamin D deficiency, unspecified, E78.5 - Hyperlipidemia, unspecified, Z00.00 - Encounter for general adult medical examination without abnormal findings TSH reflex Free T4 365 Days E55.9 - Vitamin D deficiency, unspecified, E78.5 - Hyperlipidemia, unspecified, Z00.00 - Encounter for general adult medical examination without abnormal findings Vitamin D 25-OH Total 365 Days E55.9 - Vitamin D deficiency, unspecified, E78.5 - Hyperlipidemia, unspecified, Z00.00 - Encounter for general adult medical examination without abnormal findings Complete Blood Count Auto Diff 365 Days E55.9 - Vitamin D deficiency, unspecified, E78.5 - Hyperlipidemia, unspecified, Z00.00 - Encounter for general adult medical examination without abnormal findings UA w Microscopic 365 Days E55.9 - Vitamin D deficiency, unspecified, E78.5 - Hyperlipidemia, unspecified, Z00.00 - Encounter for general adult medical examination without abnormal findings Pap Smear Today Z00.00 - Encounter for general adult medical examination without abnormal findings Quality Reporting (2020) Depression/Bipolar (159/160/161/177) PHQ-9: Total score: 0 Coding Level of Care Code Medicare Subsequent (G0439) Diagnoses Annual physical exam Z00.00 CPT Codes Advance Care Planning - Time spent: 1-15 minutes, not on file ([id number]) Advance Care Planning Advance Care Planning discussion: Exists, not on file Date of discussion: 05/12/23 Forms completed: Health Care Proxy Time spent: 1-15 minutes, not on file
[2023-05-12 09:25] VITALS: BP 110/68; PULSE 75; O2SAT 99; BMI 20.8
== END 2023-05-12 10:15 | disposition home or self-care (01) ==
PROVIDERS: Visit Provider Internal Medicine
DX: Z00.00 Encounter for general adult medical examination without abnormal findings (principal)
CPT/HCPCS: 1124F; G0439

== ENCOUNTER 2023-05-12 10:56 | Outpatient (REF) | payer MEDICARE, BC, SELFPAY ==
[2023-05-18 21:23] LABS: HPV mRNA E6/E7 Not Detected (Not Detected)
== END 2023-05-12 10:57 | disposition home or self-care (01) ==
LOC: HO.LNP 10:56
PROVIDERS: Visit Provider Internal Medicine
DX: Z01.419 Encounter for gynecological examination (general) (routine) without abnormal findings (principal); Z11.51 Encounter for screening for human papillomavirus (HPV)
CPT/HCPCS: 87624; 88142

== ENCOUNTER → 2024-04-14 07:45 | Outpatient (BNV) | payer MEDICARE, BC, SELFPAY | PROVIDERS: PCP Internal Medicine; Visit Provider Radiology Diagnostic Radiology | DX: Z12.31 Encounter for screening mammogram for malignant neoplasm of breast (principal) | CPT/HCPCS: 77063; 77067 ==

== ENCOUNTER 2024-04-14 07:57 | Outpatient (REF) | payer MEDICARE, BC, SELFPAY | END 2024-04-14 07:58 | disposition home or self-care (01) | LOC: HO.MAMMO 07:57 | PROVIDERS: PCP Internal Medicine; Visit Provider Internal Medicine | DX: Z12.31 Encounter for screening mammogram for malignant neoplasm of breast (principal) | CPT/HCPCS: 77063; 77067 ==

== ENCOUNTER 2024-04-21 08:08 | Outpatient (AMB) | payer MEDICARE, BC, SELFPAY ==
[2024-04-21 08:09] VITALS: BP 120/62; PULSE 72; TEMP 36.5; O2SAT 97; BMI 20.8
--- NOTE | 2024-04-21 08:09 | AM.OFFWIN_ITS ---
Intake Vital Signs 04/21/24 08:09 Height 5 ft 5 in Weight 125 lb BMI 20.8 BP 120/62 Blood Pressure Location Lt brachial Position Sitting Pulse 72 Pulse Source Pulse Oximeter Temp 97.7 F Temp Source Oral Pulse Oximetry (%) 97 Oxygen Delivery Method Room Air Intake Visit Reasons: EP rash on belly Intake Note: pt is here for rash on belly for 2-3 days Patient Tobacco Use Status: Never used Tobacco Allergies No Known Allergies [No Known Allergies*] Allergy (Verified 04/21/24 08:10) Do you need a note to return to daycare/school/sports/work: No HPI HPI Comments History of Present Illness Details Patient is a 69-year-old female complaining of a new rash for the past 2 days on her abdomen and right breast. She states the rash is not itchy but it seems to be getting worse. She denies any fevers and states the rash is not warm. She denies any bug bites, new creams lotions or detergents but does say she started drinking almond milk few days ago. She has since stopped drinking almond milk. [facility], [facility] Medical History (Updated 04/21/24 @ 08:36 by Italia Mathis PA-C) Annual physical exam Postmenopausal Shoulder pain, right Mammogram normal Normal Pap smear Vitamin D deficiency Hyperlipemia Dysplastic nevi Surgical History H/O colonoscopy S/P bunionectomy Family History Father No problems noted. Mother Ovarian cancer Social History Housing: House Alcohol intake: never Patient Tobacco Use Status: Never used Tobacco e-Cigarette/Vaping Use: Never Used Current occupational status: retired Current occupation: rt handed Review of Systems Const All systems reviewed & are unremarkable except as noted in HPI and below Physical Exam Vital Signs: Last Vital Signs Temp 97.7 F 04/21/24 08:09 Pulse 72 04/21/24 08:09 BP 120/62 04/21/24 08:09 Pulse Ox 97 04/21/24 08:09 Oxygen Delivery Method Room Air 04/21/24 08:09 BMI result Body Mass Index 20.8 Const General: cooperative, healthy appearing, comfortable, no acute distress and well developed Orientation/consciousness: patient oriented x3 Limitations: no limitations Eyes General: appearance normal, both eyes and all related structures Resp Effort & Inspection: normal respiratory effort and able to speak in complete sentences Skin Other: left lower and mid abdomen has disseminated maculopapular rash approximately 20 cm x 15 cm, disseminated maculopapular rash on right breast about 4 cm x 3 cm Neuro General: patient oriented x3 Assessment & Plan Assessment & Plan (1) Allergic dermatitis due ingested food: Code(s): L27.2 - Dermatitis due to ingested food Plan: As discussed, stopped drinking almond milk. Discussed risks and benefits of prednisone and describes taper as well as possible side effects. Advised if the rash does not go away, to follow up next week with her PCP or here. Plan see above Medications: New prednisone On days 1&2, take 3 tablets with breakfast. On days 3&4 take 2 tablets with breakfast, on days 5&6 take 1.5 tablets with breakfast, on days 7&8 take 1 tablet with breakfast, on days 9&10 take 0.5 tablet with breakfast. 20 mg PO DAILY 16 tabs 0RF Coding Level of Care Code Est Pt Level 3 (76128) Diagnoses Allergic dermatitis due ingested food L27.2
== END 2024-04-21 09:25 | disposition home or self-care (01) ==
PROVIDERS: PCP Internal Medicine; Visit Provider Physician Assistant
DX: L27.2 Dermatitis due to ingested food (principal)
CPT/HCPCS: 99213

== ENCOUNTER 2024-05-09 07:27 | Outpatient (REF) | payer MEDICARE, BC, SELFPAY ==
[2024-05-09 10:12] LABS: MANUAL DIFF FLAG NO
[2024-05-09 10:20] LABS: Appearance Urine Clear; Color Urine Yellow; Glucose Urine UA Negative (Negative); Leukocyte Esterase Urine Negative (Negative); Nitrite Urine Negative (Negative); Specific Gravity - Urine 1.015 (1.005-1.025); Urine Blood Negative (Negative); Urine Ketones Negative (Negative); Urine Protein Negative (Neg-Trace)
[2024-05-09 10:27] LABS: Bacteria Urine None Seen (None Seen); Basophils Percent Auto 0.5 % (0-2); Eosinophils Absolute Auto 0.2 X10*3/uL (0.0-0.4); Eosinophils Percent Auto 3.1 % (0-4); Hematocrit 42.3 % (37.0-47.0); Hyaline Casts Urine 0-2 /LPF (0-2); Imm Gran Abs Auto 0.01 X10*3/uL (0.00-0.03); Imm Gran Pct Auto 0.2 % (0.0-0.4); Lymphocytes Absolute Auto 1.9 X10*3/uL (1.2-4.9); Lymphocytes Percent Auto 30.8 % (20-40); Mean Corpuscular HGB Conc 33.1 g/dl (31.0-35.0); Mean Corpuscular Hemoglobin 30.6 pg (27.0-33.0); Mean Corpuscular Volume 92.4 fL (80.0-98.0); Mean Platelet Volume 9.8 fL (9.4-12.3); Monocytes Absolute Auto 0.5 X10*3/uL (0.1-1.2); Monocytes Percent Auto 7.9 % (2-11); Neutrophils Absolute Auto 3.5 x10*3/uL (2.0-8.3); Neutrophils Percent Auto 57.5 % (45-73); Platelet Count 349 X10*3/uL (160-400); RBC Urine 0-2 /HPF (0-2); Red Blood Count 4.58 X10*6/uL (4.20-5.50); Squamous Epithelial Cell Urine 0-2 /HPF (0-2); WBC Urine 0-5 /HPF (0-5); White Blood Count 6.1 X10*3/uL (4.8-10.8)
[2024-05-09 10:43] LABS: Alanine Aminotransferase 21 U/L (0-31); Albumin Level 4.1 g/dL (3.5-5.0); Alkaline Phosphatase 79 U/L (39-117); Anion Gap 12 (12-20); Aspartate Amino Transferase 23 U/L (5-31); Bilirubin Total 0.6 mg/dL (0.0-1.0); Blood Urea Nitrogen 10 mg/dL (9-16); Calcium 9.1 mg/dL (8.4-10.2); Carbon Dioxide 26 mmol/L (22-29); Chloride 105 mmol/L (96-108); Cholesterol 167 mg/dL (<200); Estimated Glomerular Filt Rate > 60; Glucose Fasting 93 mg/dL (60-99); HDL Cholesterol 47 mg/dL (>40); LDL Cholesterol Calculated 104 mg/dL (<100); Potassium 4.2 mmol/L (3.3-5.1); Sodium 139 mmol/L (135-145); Total Protein 6.6 g/dL (6.5-8.0); Triglycerides 81 mg/dL (<150)
[2024-05-09 11:03] LABS: TSH reflex Free T4 1.94 uIU/mL (0.32-4.0)
== END 2024-05-09 07:28 | disposition home or self-care (01) ==
LOC: HO.HMGCLDS 07:27
PROVIDERS: PCP Internal Medicine; Visit Provider Internal Medicine
DX: Z00.00 Encounter for general adult medical examination without abnormal findings (principal); E55.9 Vitamin D deficiency, unspecified; E78.5 Hyperlipidemia, unspecified
CPT/HCPCS: 36415; 80053; 80061; 81001; 82306; 84443; 85025

== ENCOUNTER 2024-05-17 08:31 | Outpatient (AMB) | payer MEDICARE, BC, SELFPAY ==
[2024-05-17 08:52] VITALS: BP 112/74; PULSE 71; O2SAT 99; BMI 20.8
--- NOTE | 2024-05-17 08:52 | AM.OFFVISMDC ---
Intake Vital Signs 05/17/24 08:52 Height 5 ft 5 in Weight 125 lb BMI 20.8 BP 112/74 Blood Pressure Location Rt brachial Position Sitting Pulse 71 Pulse Source Pulse Oximeter Pulse Oximetry (%) 99 Oxygen Delivery Method Room Air Intake Visit Reasons: SWV Allergies No Known Allergies [No Known Allergies*] Allergy (Verified 05/17/24 09:00) Medication List - Last Reconciled 05/17/24 by Solange Lora MD aspirin 81 mg PO .every other day cholecalciferol (vitamin D3) 25 mcg PO DAILY omega 2-sgw-sxc-fish oil 100-160-1,000 mg (Fish Oil) 1 cap PO DAILY vitamin B complex (B Complex-Vitamin B12 tablet) 1 tab PO DAILY HPI SWV HPI Details Initiated the conversation about Advanced Directives. Advanced Directives help? patients prepare for current and future decisions about their medical treatment? and place of care. Discussed with patient that it is a process where a patients? current condition and prognosis are reviewed, their wishes for information? regarding their illness are elicited, and likely medical dilemmas are presented? and options discussed. The form can be amended as needed, reviewed yearly and? make changes as needed IPPE/AWV ? year old presents? for her ? Annual? Wellness Visit, initial visit.? Medical / Social History Reviewed? Past Medical History ?Yes? . ? [place]? of Care / Care Team list updated ?Yes . ? Surgical/Hospitalization? History ?Yes . ? Current Medications? (including OTC and supplements) ?Yes . ? Family History ?Yes? . ? Tobacco? Control form ?Yes . ? AUDIT-C (Alcohol use) form? ?Yes . ? Illicit drug use in Social? History ?Yes . ? Current diagnosis of? depression? ?No ? Appropriate PHQ2/PHQ9? completed ?Yes . ? Data entered by ?Medical? [employer] and reviewed by provider ? Fall Risk ? Fall? History? Have you had any falls with? injury in the past year? ?No . ? Have you had two or more? falls in the past year? ?No . ? Fall Risk Assessment: ?No? falls in the past year . ? HRA filled out by? the patient, reviewed by Provider and scanned. ? IPPE/AWV ? Balance? [place]? ?Yes . ? Tandem? walk ?Yes . ? Walk and? Turn ?Yes . ? Rise from? sit to stand ?Yes . ?Vision? Corrective? lens ?Yes ? Vision? screen ? Up-to-date, has an appointment [] for vision? screening and glaucoma screening ?Hearing? Whisper? test ?pass .? Initiated the conversation about Advanced Directives. Advanced Directives help? patients prepare for current and future decisions about their medical treatment? and place of care. Discussed with patient that it is a process where a patients? current condition and prognosis are reviewed, their wishes for information? regarding their illness are elicited, and likely medical dilemmas are presented? and options discussed. The form can be amended as needed, reviewed yearly and? make changes as needed Written? Plan?Completed. See Patient? Documents. [facility] Medical History Annual physical exam Postmenopausal Shoulder pain, right Mammogram normal Normal Pap smear Vitamin D deficiency Hyperlipemia Dysplastic nevi Surgical History H/O colonoscopy S/P bunionectomy Family History Father No problems noted. Mother Ovarian cancer Social History Housing: House Alcohol intake: never Patient Tobacco Use Status: Never used Tobacco e-Cigarette/Vaping Use: Never Used Current occupational status: retired Current occupation: rt handed Questionnaire Medicare Wellness Checkup [age] What gender do you identify with?: female During the past 4 weeks, how much have you been bothered by emotional problems such as feeling anxious, depressed, irritable, sad or downhearted, and blue?: not at all During the past 4 weeks, has your physical & emotional health limited your social activities with family, friends, neighbors, or groups?: not at all During the past 4 weeks, how much bodily pain have you generally had?: very mild pain During the past 4 weeks, was someone available to help you if you needed & wanted help?: yes, as much as I wanted During the past 4 weeks, what was the hardest physical activity you could do for at least 2 minutes?: very light Can you get to places out of walking distance without help? (For eg., can you travel alone on buses, taxis or drive your car?): Yes Can you go shopping for groceries or clothes without someone's help?: Yes Can you prepare your own meals?: Yes Can you do your housework without help?: Yes Because of any health problems, do you need the help of another person with your personal care needs such as eating, bathing, dressing or getting around the house?: No Can you handle your own money without help?: Yes During the past 4 weeks, how would you rate your health in general?: excellent During the past 4 weeks how have things been going for you?: very well; could hardly better Are you having difficulties driving your car?: no Do you always fasten your seat belt when you are in a car?: yes, usually During past 4 weeks, have you been bothered by the following: never: Falling or dizzy when standing up, Sexual problems?, Trouble eating well?, Teeth or denture problems?, Problems using the telephone? and Tiredness or fatigue? Have you fallen 2 or more times in the past year?: No Are you afraid of falling?: No Are you a smoker?: no During the past 4 weeks, how many drinks of wine, beer, or other alcoholic beverages did you have?: no alcohol at all Do you exercise for about 20 minutes 3 or more times a week?: yes, most of the time Have you been given information to help with the following?: yes: Keeping track of your medications? and no: Hazards in your house that might hurt you? How often do you have trouble taking medicines the way you have been told to take them?: I do not have to take medicine How confident are you that you can control & manage most of your health problems?: not very confident What is your race?: White Mini Mental State Exam (MMSE) Orientation What is the (year) (season) (date) (day) (month)?: year, season, date, day and month Where are we (state) (county) (town or city) (hospital) (floor)?: state, county, town or city, hospital/clinic and floor Registration Name of 3 unrelated objects clearly and slowly, then ask patient to repeat all 3 of them. (1st repeat determines score. Make sure they can repeat all three): object 1, object 2 and object 3 Attention & Calculation (CHOOSE ONE) Spell WORLD backwards (DLROW): 5 letters Recall Ask patient to repeat the 3 items from question #3.: object 1, object 2 and object 3 Language Show patient a wristwatch & ask what it is. Repeat for pencil.: watch and pencil Ask the patient to repeat the phrase 'No ifs, ands, or buts' after you.: correct Ask the patient to 'take a piece of paper with their right hand' 'fold paper in half' 'place paper on floor': take paper in right hand, fold paper in half and place paper on floor Print the sentence 'CLOSE YOUR EYES' on a piece. If patient actually closes eyes then score.: followed written direction Give patient a blank piece of paper & ask to write a sentence. Score if it contains a noun & verb.: sentence contains subject and verb Score Score: 29 Activity of Daily Living Bathing - sponge bath, tub bath or shower: receives no assistance (gets in/out by self, if usual bathing means Dressing - getting clothes from closets & drawers, including inner/outer garments & fasteners.: gets clothes & gets completely dressed without help Toileting - going to the 'toilet room' for urine/bowel elimination & cleaning self/arranging clothes: goes to toilet room, cleans self, arranges clothes without help Transfer: moves in & out of bed and chair without help (may use support object) Continence: controls urination/bowel movements completely by self Feeding: feeds self without help Total Score: 0 Information obtained from: patient Using telephone: independent Traveling: independent Shopping: independent Preparing meals: independent Housework: independent Taking medicine: independent Managing money: independent PHQ-9 Over the last 2 weeks, how often have you been bothered by any of the following problems? 1. Little interest or pleasure in doing things: not at all 2. Feeling down, depressed, or hopeless: not at all 3. Trouble falling or staying asleep, or sleeping too much: not at all 4. Feeling tired or having little energy: not at all 5. Poor appetite or overeating: not at all 6. Feeling bad about yourself - or that you are a failure or have let yourself or your family down: not at all 7. Trouble concentrating on things, such as reading the newspaper or watching television: not at all 8. Moving or speaking so slowly that other people could have noticed. Or the opposite - being so fidgety or restless that you have been moving around a lot more than usual: not at all 9. Thoughts that you would be better off or of hurting yourself in some way: not at all Total score: 0 Depression Screening Interpretation: Negative Depression Screening Done: Yes Source: Developed by Drs. Jayme Pena, Tressa Carty, Zackary Newman and colleagues, with an educational raúl from [employer]. Review of Systems Const All systems reviewed & are unremarkable except as noted in HPI and below Reports no additional complaints Eyes Reports no additional complaints ENT Reports no additional complaints Card Reports no additional complaints Resp Reports no additional complaints GI Reports no additional complaints Reports no additional complaints Physical Exam Vital Signs: Last Vital Signs Pulse 71 05/17/24 08:52 BP 112/74 05/17/24 08:52 Pulse Ox 99 05/17/24 08:52 Oxygen Delivery Method Room Air 05/17/24 08:52 BMI result Body Mass Index 20.8 Const General: no acute distress HEENT Head: Yes normal to inspection Ears: hearing grossly normal bilaterally Neck Neck: Yes no lymphadenopathy and Yes supple Resp Effort & Inspection: normal respiratory effort Auscultation: clear to auscultation bilaterally Cardio Rhythm: regular rhythm Heart sounds: S1 normal heart sound present and S2 normal heart sound present GI Inspection: Yes normal to inspection Palpation (GI): Soft to palpation Percussion: Yes normal to percussion Auscultation: normal bowel sounds Extrem General: Yes no clubbing, cyanosis or edema Assessment & Plan Assessment & Plan (1) Hyperlipemia: Comment: refused statins 05/15 Code(s): E78.5 - Hyperlipidemia, unspecified Plan: Continue low-cholesterol diet regular exercise check lipid profile in 1 year (2) Vitamin D deficiency: Comment: cont vit D Code(s): E55.9 - Vitamin D deficiency, unspecified Plan: Continue vitamin-D supplement (3) Annual physical exam: Code(s): Z00.00 - Encounter for general adult medical examination without abnormal findings Plan: Well-balanced diet regular physical activity discussed with the patient. She is up-to-date with mammogram. Patient will be referred to GI for repeat colonoscopy Orders: Orders Complete Blood Count Auto Diff 1 Year E55.9 - Vitamin D deficiency, unspecified, E78.5 - Hyperlipidemia, unspecified, Z00.00 - Encounter for general adult medical examination without abnormal findings Lipid Panel 1 Year E55.9 - Vitamin D deficiency, unspecified, E78.5 - Hyperlipidemia, unspecified, Z00.00 - Encounter for general adult medical examination without abnormal findings Vitamin D 25-OH Total 1 Year E55.9 - Vitamin D deficiency, unspecified, E78.5 - Hyperlipidemia, unspecified, Z00.00 - Encounter for general adult medical examination without abnormal findings UA w Microscopic 1 Year E55.9 - Vitamin D deficiency, unspecified, E78.5 - Hyperlipidemia, unspecified, Z00.00 - Encounter for general adult medical examination without abnormal findings Comprehensive [place]. Panel Fast 1 Year E55.9 - Vitamin D deficiency, unspecified, E78.5 - Hyperlipidemia, unspecified, Z00.00 - Encounter for general adult medical examination without abnormal findings TSH reflex Free T4 1 Year E55.9 - Vitamin D deficiency, unspecified, E78.5 - Hyperlipidemia, unspecified, Z00.00 - Encounter for general adult medical examination without abnormal findings Referrals Gastroenterology Referral E55.9 - Vitamin D deficiency, unspecified, E78.5 - Hyperlipidemia, unspecified, Z00.00 - Encounter for general adult medical examination without abnormal findings Quality Reporting (2020) Depression/Bipolar (159/160/161/177) PHQ-9: Total score: 0 Coding Level of Care Code Medicare Subsequent (G0439) Diagnoses Hyperlipemia E78.5 Vitamin D deficiency E55.9 Annual physical exam Z00.00 CPT Codes Advance Care Planning - Advance Care Planning discussion: On file, no changes ([id number]) Advance Care Planning Advance Care Planning discussion: On file, no changes Forms completed: Health Care Proxy
== END 2024-05-17 09:16 | disposition home or self-care (01) ==
PROVIDERS: PCP Internal Medicine; Visit Provider Internal Medicine
DX: Z00.00 Encounter for general adult medical examination without abnormal findings (principal); E78.5 Hyperlipidemia, unspecified; E55.9 Vitamin D deficiency, unspecified
CPT/HCPCS: 1123F; G0439

== ENCOUNTER 2024-12-07 14:04 | Outpatient (AMB) | payer MEDICARE, BC, SELFPAY ==
[2024-12-07 14:26] VITALS: BP 122/80; PULSE 76; TEMP 37.1; O2SAT 97; BMI 20.8
--- NOTE | 2024-12-07 14:26 | AM.OFFWIN_ITS ---
Intake Vital Signs 12/07/24 14:26 Height 5 ft 5 in Weight 125 lb BMI 20.8 BP 122/80 Blood Pressure Location Lt brachial Position Sitting Pulse 76 Pulse Source Pulse Oximeter Temp 98.8 F Temp Source Oral Pulse Oximetry (%) 97 Intake Visit Reasons: EP-cough, sore throat, headaches Patient Tobacco Use Status: Never used Tobacco Allergies No Known Allergies [No Known Allergies*] Allergy (Verified 12/07/24 14:26) Do you need a note to return to daycare/school/sports/work: No HPI HPI Comments History of Present Illness Details 69 y/o female patient who presents to [facility] walk in clinic with c/o cough for 4 days. She has been using NyQuil with good relief. [facility] Medical History (Updated 12/07/24 @ 15:00 by Kellee Richard NP) Cough Acute respiratory disease Annual physical exam Postmenopausal Shoulder pain, right Mammogram normal Normal Pap smear Vitamin D deficiency Hyperlipemia Dysplastic nevi Surgical History H/O colonoscopy S/P bunionectomy Family History Father No problems noted. Mother Ovarian cancer Social History Housing: House Alcohol intake: never Patient Tobacco Use Status: Never used Tobacco e-Cigarette/Vaping Use: Never Used Current occupational status: retired Current occupation: rt handed Review of Systems Const All systems reviewed & are unremarkable except as noted in HPI and below Physical Exam Vital Signs: Last Vital Signs Temp 98.8 F 12/07/24 14:26 Pulse 76 12/07/24 14:26 BP 122/80 12/07/24 14:26 Pulse Ox 97 12/07/24 14:26 BMI result Body Mass Index 20.8 Const General: comfortable Orientation/consciousness: patient oriented x3 HEENT Head: Yes normocephalic Ears: external ears normal and TM abnormal with fluid behind the TM bilateral Face and sinus: Yes sinuses nontender Mouth: moist mucous membranes Throat: Yes uvula midline Resp Effort & Inspection: normal respiratory effort, able to speak in complete sentences and Actively coughing Auscultation: clear to auscultation bilaterally, no crackles, no rales, no rhonchi and no wheezes Cardio Heart sounds: S1 normal heart sound present and S2 normal heart sound present Neuro General: patient oriented x3 Assessment & Plan Assessment & Plan (1) Acute respiratory disease: Code(s): J06.9 - Acute upper respiratory infection, unspecified Plan: Rapid Strep negative OTC cough remedies. (2) Cough: Code(s): R05.9 - Cough, unspecified Qualifiers: Cough type: acute Qualified Code(s): R05.1 - Acute cough Plan: Rapid Strep negative OTC cough remedies. Medications: New dextromethorphan polistirex ER (Delsym 12 hour) 10 mL PO Q12H 89 mL 0RF cough J06.9 - Acute upper respiratory infection, unspecified benzonatate 100 mg PO TID 90 caps 0RF cough R05.1 - Acute cough Coding Level of Care Code Est Pt Level 4 (48989) Diagnoses Acute respiratory disease J06.9 Acute cough R05.1 Cough type: acute Time Spent (min) 20
== END 2024-12-07 15:08 | disposition home or self-care (01) ==
PROVIDERS: PCP Internal Medicine; Visit Provider Nurse Practitioner Family
DX: J06.9 Acute upper respiratory infection, unspecified (principal); R05.1 Acute cough; Z13.9 Encounter for screening, unspecified

== ENCOUNTER → 2024-12-07 14:04 | Outpatient (BNVA) | payer MEDICARE, BC, SELFPAY | PROVIDERS: PCP Internal Medicine | DX: J06.9 Acute upper respiratory infection, unspecified (principal); R05.1 Acute cough | CPT/HCPCS: 87880; 99212 ==

== ENCOUNTER → 2024-12-18 08:11 | Outpatient (BNVA) | payer MEDICARE, BC, SELFPAY | PROVIDERS: PCP Internal Medicine | DX: J32.9 Chronic sinusitis, unspecified (principal) | CPT/HCPCS: 96127; 99212 ==

== ENCOUNTER 2024-12-18 08:32 | Outpatient (AMB) | payer MEDICARE, BC, SELFPAY ==
[2024-12-18 08:25] VITALS: BP 126/78; PULSE 89; TEMP 37.2; O2SAT 99; BMI 20.5
--- NOTE | 2024-12-18 08:25 | MHC.PC.OV ---
Vital Signs 12/18/24 08:25 Height 5 ft 5 in Weight 123 lb BMI 20.5 BP 126/78 Blood Pressure Location Rt brachial Position Sitting Pulse 89 Pulse Source Pulse Oximeter Temp 98.9 F Temp Source Oral Pulse Oximetry (%) 99 Oxygen Delivery Method Room Air Intake Visit Reasons: cough congestion Intake Note: Pt is here today for a sick visit. Pt c/o cough congestion pt was seen in a walk in and was given Benzonatate. Allergies No Known Allergies [No Known Allergies*] Allergy (Verified 12/07/24 14:26) Medication List - Last Reconciled 12/18/24 by Solange Lora MD aspirin 81 mg PO .every other day benzonatate 100 mg PO TID cholecalciferol (vitamin D3) 25 mcg PO DAILY dextromethorphan polistirex ER (Delsym 12 hour) 10 mL PO Q12H omega 4-ggw-kop-fish oil 100-160-1,000 mg (Fish Oil) 1 cap PO DAILY vitamin B complex (B Complex-Vitamin B12 tablet) 1 tab PO DAILY Tobacco use date assessed: 12/18/24 Fall risk assessment: No Falls in past year Last assessed Fall Risk: 12/18/24 Dental Screening Dental Screen Date: 12/18/24 Did you have a dental visit in the last 12 months?: Yes Did you have a dental problem in the last 6 months where you did not have access to dental care?: No Was dental information given to patient?: Patient has dentist HPI cough congestion HPI Details Patient presents complaining of persistent productive cough fatigue decreased appetite for 2 weeks. She denies fever chills night sweats pleurisy. Patient has been taking [id number] cold medications [facility] Medical History Cough Acute respiratory disease Annual physical exam Postmenopausal Shoulder pain, right Mammogram normal Normal Pap smear Vitamin D deficiency Hyperlipemia Dysplastic nevi Surgical History H/O colonoscopy S/P bunionectomy Family History Father No problems noted. Mother Ovarian cancer Social History Housing: House Alcohol intake: never Patient Tobacco Use Status: Never used Tobacco e-Cigarette/Vaping Use: Never Used service: No Current occupational status: retired Current occupation: rt handed Cognitive needs: No Hearing needs: No Vision needs: No Questionnaire PHQ-9 Over the last 2 weeks, how often have you been bothered by any of the following problems? 1. Little interest or pleasure in doing things: not at all 2. Feeling down, depressed, or hopeless: not at all 3. Trouble falling or staying asleep, or sleeping too much: not at all 4. Feeling tired or having little energy: not at all 5. Poor appetite or overeating: not at all 6. Feeling bad about yourself - or that you are a failure or have let yourself or your family down: not at all 7. Trouble concentrating on things, such as reading the newspaper or watching television: not at all 8. Moving or speaking so slowly that other people could have noticed. Or the opposite - being so fidgety or restless that you have been moving around a lot more than usual: not at all 9. Thoughts that you would be better off or of hurting yourself in some way: not at all Total score: 0 Depression Screening Interpretation: Negative Depression Screening Done: Yes 64815 - PHQ-9 Billing: Yes Source: Developed by Drs. Jayme Pena, Tressa Carty, Zackary Newman and colleagues, with an educational raúl from [employer]. Thrive Questionnaire Date Thrive assessed: 12/18/24 I am a: Patient What is your living situation today?: I choose not to answer this question Within the past 12 months, did the food you bought not last and you didn't have the money to get more?: I choose not to answer this question Within the past 12 months, did you worry whether your food would run out before you got money to buy more?: I choose not to answer this question Do you have trouble paying for medicines?: I choose not to answer this question Do you have trouble getting transportation to medical appointments?: I choose not to answer this question Do you have trouble paying your heating and electricity bill?: I choose not to answer this question Do you have trouble taking care of your child, family member or friend?: I choose not to answer this question Do you have trouble with day-to-day activities such as bathing, preparing meals, shopping, managing finances, etc.?: I choose not to answer this question Are you currently unemployed and looking for a job?: I choose not to answer this question Are you interested in more education?: I choose not to answer this question THRIVE Score: 0 AUDIT C Alcohol Use Questionnaire (AUDIT-C) 1. How often do you have a drink containing alcohol?: Never 3. How often do you have six or more drinks on one occasion?: Never Total Score: 0 DERICK-7 AMB Questionnaire DERICK-7 Date DERICK - 7 assessed: 12/18/24 Feeling nervous, anxious, or on edge: 0 = Not at all Not being able to stop or control worryin = Not at all Worrying too much about different things: 0 = Not at all Trouble relaxin = Not at all Being so restless that it is hard to sit still: 0 = Not at all Becoming easily annoyed or irritable: 0 = Not at all Feeling afraid as if something awful might happen: 0 = Not at all Total DERICK-7 score (0-4 normal; 5-9 mild; 10-14 moderate; 15-21 severe): 0 Source: Developed by Drs. Jayme Pena, Tressa Carty, Zackary Newman and colleagues, with an educational raúl from [employer]. DERICK-7 Assessment Billing DERICK-7 Assessment Tool: DERICK-7 Assessment 62449 Review of Systems Const All systems reviewed & are unremarkable except as noted in HPI and below Eyes Reports no additional complaints ENT Reports no additional complaints Card Reports no additional complaints Resp Reports no additional complaints GI Reports no additional complaints Physical exam (Primary Care) Vital Signs: Last Vital Signs Temp 98.9 F 12/18/24 08:25 Pulse 89 12/18/24 08:25 BP 126/78 12/18/24 08:25 Pulse Ox 99 12/18/24 08:25 Oxygen Delivery Method Room Air 12/18/24 08:25 BMI result Body Mass Index 20.5 Tobacco/Smoking Status: Tobacco use Status Tobacco use date assessed 12/18/24 12/18/24 08:29 Patient Tobacco Use Status Never used Tobacco 12/18/24 08:29 e-Cigarette/Vaping Use Never Used 12/18/24 08:29 PHQ-9: PHQ-9 Score PHQ-9: Total score 0 12/18/24 08:49 Depression Screening Interpretation: Negative Thrive Assessment: Date of Thrive Assessment Date Thrive assessed 12/18/24 12/18/24 08:49 Const General: no acute distress HENMT Head: Yes normal to inspection Ears: TM's normal bilaterally Face and sinus: Yes sinus tenderness Throat: Yes postnasal drainage Eyes General: appearance normal, both eyes and all related structures Resp Effort & Inspection: normal respiratory effort Auscultation: rhonchi Cardio Rhythm: regular rhythm Heart sounds: S1 normal heart sound present and S2 normal heart sound present Coding Level of Care Code Est Pt Level 3 (67912) Diagnoses Sinusitis J32.9 Additional Codes DERICK-7 Assessment Billing - DERICK-7 Assessment Tool: DERICK-7 Assessment 42423 ([id number]) PHQ-9 - 81174 - PHQ-9 Billing: Yes ([id number]) Assessment & Plan Assessment & Plan (1) Sinusitis: Code(s): J32.9 - Chronic sinusitis, unspecified Category: Medical Plan: Z-Joe as prescribed and supportive care discussed with the patient Medications: New azithromycin For 250 mg dose pack: take 500 mg today (day 1), then 250 mg for 4 days (days 2-5) PO 6 tabs 0RF
== END 2024-12-18 09:19 | disposition home or self-care (01) ==
LOC: HO.HMCC 08:32
PROVIDERS: PCP Internal Medicine; Visit Provider Internal Medicine
DX: J32.9 Chronic sinusitis, unspecified (principal)

== ENCOUNTER 2025-03-29 08:14 | Outpatient (AMB) | payer BC, MEDICARE, SELFPAY ==
--- OUTSIDE RECORDS SUMMARY | 2025-03-29 08:21 | XMS_ITS | Patient Health Record ---
Author Organization [facility] Address [address] [place] [address] Care Team Providers Care Computer Lab Para Professional Name Role Phone Solange Lora MD Primary Care Provider Fernando Acevedo Unavailable [phone] Reason For Referral No Information Medications Medication SIG (Take, Route, Frequency, Duration) Notes Start Date End Date Status Work Note . . . 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 . . 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 No Problems Problem Type SNOMED Code ICD Code Onset Dates Problem Status W/U Status Risk Notes Problem Pain in right foot (425366393808 [id number]) Pain in right foot (M79.671) Active confirmed Plan Of Treatment Pending Test Test Name Order Date X ray : Foot, left 2V 12/04/2014 X ray : Foot, left 2V 01/15/2015 X ray : Foot, left 2V 01/25/2015 X ray : Foot, left 2V 02/19/2015 X ray : Foot, left 2V 05/03/2015 X ray : Foot, right 2V 01/10/2016 X ray : Foot, right 2V 02/04/2016 X ray : Foot, right 2V 02/18/2016 X ray : Foot, right 2V 03/03/2016 X ray : Foot, right 2V 05/29/2016 X ray : Foot, right 2V 12/04/2014 Insurance Providers Payer Name Payer Address Payer Phone Subscriber Number Group Number Insured Name Patient Relationship to Insured Coverage Start Date Coverage End Date [facility] [address] [place] [address] [id number] Radha Celeste Self - patient is the insured Medical (General) History Surgical History Surgery Date(Month/Year) Bun/L , Dislocated sesamoid/[place] 12/23 Josh w/amarjit screw 01/30/2016 Hospitalization History Reason Date(Month/Year) [facility] CTR - Bunion Left Foot
--- NOTE | 2025-03-29 08:32 | MHC.OFFVIS ---
Vital Signs 03/29/25 08:40 Height 5 ft 5 in Weight 130 lb BMI 21.6 BP 171/74 H Blood Pressure Location Rt brachial Position Sitting Pulse 67 Intake Visit Reasons: colonoscopy screening Intake Note: Patient referred by pcp Dr. Lora for colonoscopy screening. Patient c/o: reports hx of hemorrhoids. Denies constipation, diarrhea. Has had 2 previous colonoscopies. Automatic Lathe Tender Required: No Accompanied by: significant other Declan Denise Allergies No Known Allergies [No Known Allergies*] Allergy (Verified 03/29/25 08:38) Medication List - Last Reconciled 03/29/25 by Carlos Delarosa MD benzonatate 100 mg PO TID cholecalciferol (vitamin D3) 25 mcg PO DAILY omega 9-jzj-nze-fish oil 100-160-1,000 mg (Fish Oil) 1 cap PO DAILY HPI HPI colonoscopy screening: Details: 70 year female referred for screening colonoscopy She says her last colonoscopy was about 10 years ago and this was done in [facility]. She says that she recalls this to be unremarkable She denies any significant GI complaints. She denies any family history of colon cancer. [facility], [facility] Medical History (Updated 03/29/25 @ 08:58 by Carlos Delarosa MD) Colon cancer screening Rotator cuff injury Cough Acute respiratory disease Annual physical exam Postmenopausal Shoulder pain, right Mammogram normal Normal Pap smear Vitamin D deficiency Hyperlipemia Dysplastic nevi Surgical History H/O colonoscopy S/P bunionectomy Family History Father No problems noted. Mother Ovarian cancer Social History Housing: House Alcohol intake: never Patient Tobacco Use Status: Never used Tobacco e-Cigarette/Vaping Use: Never Used service: No Current occupational status: retired Current occupation: rt handed Cognitive needs: No Hearing needs: No Vision needs: No Review of Systems Const Denies chills and Denies fever(s) Card Denies chest pain, Denies dyspnea and Denies dyspnea on exertion Resp Denies cough, Denies dyspnea and Denies dyspnea on exertion GI Denies hematochezia and Denies change in bowel habits Denies hematuria Musc Denies back pain and Denies limited range of motion Neuro Denies focal weakness and Denies convulsions Psych Denies depression and Denies mood swings Physical Exam Vital Signs: Last Vital Signs Pulse 67 03/29/25 08:40 BP 171/74 H 03/29/25 08:40 BMI result Body Mass Index 21.6 Const General: comfortable and no acute distress Orientation/consciousness: patient oriented x3 Neck Neck: Yes no lymphadenopathy Resp Auscultation: clear to auscultation bilaterally Cardio Rhythm: regular rhythm GI Palpation (GI): Soft to palpation, nontender and no guarding Neuro General: patient oriented x3 Assessment & Plan Assessment & Plan (1) Colon cancer screening: Code(s): Z12.11 - Encounter for screening for malignant neoplasm of colon Category: Medical Plan: I reviewed with her the technique of colonoscopy for colon cancer screening. I explained the risks including but not limited to bleeding and perforation, as well as the benefits and alternatives. She understands and wants to proceed She does not seem to be at above average risk for colon cancer Her significant other was with her during the visit. Coding Level of Care Code New Pt Level 3 (02908) Diagnoses Colon cancer screening Z12.11
[2025-03-29 08:40] VITALS: BP 171/74; PULSE 67; BMI 21.6
== END 2025-03-29 08:54 | disposition home or self-care (01) ==
PROVIDERS: PCP Internal Medicine; Visit Provider Surgery
DX: Z12.11 Encounter for screening for malignant neoplasm of colon (principal)
CPT/HCPCS: 99203

== ENCOUNTER → 2025-03-29 08:14 | Outpatient (BNVA) | payer MEDICARE, BC, SELFPAY | PROVIDERS: PCP Internal Medicine; Visit Provider Surgery ==

== ENCOUNTER 2025-04-26 07:19 | Outpatient (REF) | payer MEDICARE, BC, SELFPAY | END 2025-04-26 07:20 | disposition home or self-care (01) | LOC: HO.MAMMO 07:19 | PROVIDERS: PCP Internal Medicine; Visit Provider Internal Medicine | DX: Z12.31 Encounter for screening mammogram for malignant neoplasm of breast (principal) | CPT/HCPCS: 77063; 77067 ==

== ENCOUNTER → 2025-04-26 07:30 | Outpatient (BNV) | payer MEDICARE, BC, SELFPAY | PROVIDERS: PCP Internal Medicine; Visit Provider Internal Medicine | DX: Z12.31 Encounter for screening mammogram for malignant neoplasm of breast (principal) | CPT/HCPCS: 77063; 77067 ==

== ENCOUNTER 2025-05-01 06:37 | Day surgery (SDC) | payer MEDICARE, BC, SELFPAY ==
--- OUTSIDE RECORDS SUMMARY | 2025-04-02 13:06 | XMS_ITS | Patient Health Record ---
Author Organization [facility] Address [address] [place] [address] Care Team Providers Care County Treasurer Name Role Phone Solange Lora MD Primary Care Provider Fernando Acevedo Unavailable [phone] Reason For Referral No Information Medications Medication SIG (Take, Route, Frequency, Duration) Notes Start Date End Date Status Work Note . . . 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 . . 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 No Problems Problem Type SNOMED Code ICD Code Onset Dates Problem Status W/U Status Risk Notes Problem Pain in right foot ([id number] 107) Pain in right foot (M79.671) Active [...] Insured Coverage Start Date Coverage End Date [facility] [address] [place] [address] [id number] Radha Celeste Self - patient is the insured Medical (General) History Surgical History Surgery Date(Month/Year) Bun/L , Dislocated sesamoid/[place] 12/23 Josh w/amarjit screw 01/30/2016 Hospitalization History Reason Date(Month/Year) [facility] - Bunion Left Foot
[2025-04-26 09:01] VITALS: BMI 21.6
--- NOTE | 2025-04-30 09:00 | P.CONAN_ITS ---
Documented by User: Loree Haq NP 04/30/25 09:00 HPI - Anesthesia Eval Consult details Narrative: 70yo F for Colonoscopy, possible polypectomy PMFSH Active Problems Active Problems: All Active Problems Colon cancer screening (Acute) Sinusitis (Acute) Cough (Acute) Acute respiratory disease (Acute) Allergic dermatitis due ingested food (Acute) Status post right rotator cuff repair (Acute) Rotator cuff tear arthropathy of right shoulder (Acute) Painful arc syndrome of right shoulder (Acute) Annual physical exam (Acute) Shoulder pain, right (Acute) Abrasion of breast (Acute) Mammogram normal (Acute) Normal Pap smear (Acute) Postmenopausal (Acute) Vitamin D deficiency (Acute) Hyperlipemia (Acute) Dysplastic nevi (Acute) Past Medical History Medical History Hemorrhoids Upper respiratory infection Postmenopausal Vitamin D deficiency Hyperlipemia Dysplastic nevi Family History Family History Father No problems noted. Mother Ovarian cancer Surgical History Surgical History Hx of rotator cuff surgery H/O colonoscopy S/P bunionectomy Social History Social History Housing: House Alcohol intake: never Patient Tobacco Use Status: Never used Tobacco e-Cigarette/Vaping Use: Never Used Use of substances other than those prescribed or required for medical reasons: No Are you DNR?: No Advance Directives: No Advance Directives Information Provided: Yes Patient : No : No Poor oral hygiene: No service: No Current occupational status: retired Current occupation: rt handed Cognitive needs: No Hearing needs: No Vision needs: No Meds Allergies Allergy/AdvReac Type Severity Reaction Status Date / Time No Known Allergies (No Known Allergy Verified 03/29/25 08:38 Allergies*) Home Medications ?Medication ?Instructions ?Recorded ?Confirmed ?Last Taken ?Type cholecalciferol (vitamin D3) 25 25 mcg PO DAILY 04/26/25 Unknown History mcg (1,000 unit) capsule omega 2-bkn-bqe-fish oil 100 1 cap PO DAILY 08/05/21 0 04/26/25 Unknown History mg-160 mg-1,000 mg capsule (Fish Oil) Exam Height,Weight and Vital Signs: Height 5 ft 5 in Weight 58.967 kg Assessment and Plan Assessment Anesthesia Assessment: Chart Reviewed Documented by User: Erik Cardona MD 05/01/25 08:05 [facility] Past Medical History Medical History Hemorrhoids Upper respiratory infection Postmenopausal Vitamin D deficiency Hyperlipemia Dysplastic nevi Functional capacity: independent ambulation Family History Family History Father No problems noted. Mother Ovarian cancer Family history of problems with anesthesia: No Surgical History Surgical History Hx of rotator cuff surgery H/O colonoscopy S/P bunionectomy History of Problems with Anesthesia: No Social History Social History Housing: House Alcohol intake: never Patient Tobacco Use Status: Never used Tobacco e-Cigarette/Vaping Use: Never Used Use of substances other than those prescribed or required for medical reasons: No Are you DNR?: No Advance Directives: No Advance Directives Information Provided: Yes Patient : No : No Poor oral hygiene: No service: No Current occupational status: retired Current occupation: rt handed Cognitive needs: No Hearing needs: No Vision needs: No Meds Allergies Allergy/AdvReac Type Severity Reaction Status Date / Time No Known Allergies (No Known Allergy Verified 03/29/25 08:38 Allergies*) Home Medications ?Medication ?Instructions ?Recorded ?Confirmed ?Last Taken ?Type cholecalciferol (vitamin D3) 25 25 mcg PO DAILY 04/26/25 Unknown History mcg (1,000 unit) capsule omega 7-vxn-ghi-fish oil 100 1 cap PO DAILY 08/05/21 0 04/26/25 Unknown History mg-160 mg-1,000 mg capsule (Fish Oil) Exam Exam Date and Time: 05/01/2025 Airway Mallampati Class: II TM Dist: >3cm Neck ROM: Full Loose/Missing/Broken Teeth: Yes (patient has a total 4 molars that are loose.) Heart: RRR Lungs: CTA Assessment and Plan Assessment Anesthesia Assessment: Anesthesia Plan Discussed Final Anesthetic Review Family History of Problems with Anesthesia: No History of Problems with Anesthesia: No NPO: Yes ASA Class: II Final Preanesthetic Review: No Changes in Pt Med Stat, Meds/Allgs Chart Reviewed, Consent Obtained/Reviewed and Anes Risks/Benef Reviewed Patient Risk: Low Procedure Risk: Low Anesthetic Plan Anesthetic Plan: MAC: Disposition: Standard PACU
[2025-05-01 07:06] VITALS: BMI 20.3
[2025-05-01 07:14] VITALS: BP 123/77; PULSE 70; RESP 16; TEMP 36; O2SAT 98
[2025-05-01] MEDS: Lactated Ringers 1,000 ML 100 ML IVCONT (07:23)
--- NOTE | 2025-05-01 08:03 | MHC.SHP ---
Pre-Procedural Eval Section A - 24 Hr Update-Section A only Date of Service: 05/01/25 Section B - Complete if H&P > 30 days Chief Complaint: Encounter for screening for malignant neoplasm of Details of Present Illness: For screening colonoscopy, denies GI complaints Relevant Social History: None Present Medications: see Short Stay Collaborative assessment Medical History: Significant History (Rotator cuff pain, hyperlipidemia,) Allergies: Allergies Allergy/AdvReac Type Severity Reaction Status Date / Time No Known Allergies (No Known Allergy Verified 03/29/25 08:38 Allergies*) Review of Systems Sugical H&P ROS: Negative: Constitution, Cardiovascular and Gastrointestinal Exam Surgical H&P Exam: Normal: Heart, Normal: Lungs and Normal: Abdomen Plan Diagnosis/Plan: Unchanged I have reviewed the history and physical and performed a pertinent physical examination on my patient. No changes have occurred unless specified. Time Spent With Patient Time: Total time managing care of this patient today ____ minutes.
--- NOTE | 2025-05-01 08:36 | P.OP_ITS ---
Operative Note Operative Note Date of Service: 05/01/25 Narrative: Preop diagnosis: Colon cancer screening Postop diagnosis: Normal colonoscopy findings Procedure: Colonoscopy Surgeon: Carlos Delarosa MD The patient is a 71 year old female here for screening colonoscopy. She und erstood the technique of the planned procedure as was the risks, benefits, and alternatives. The patient was brought to the operating room and placed in left lateral decubitus position under monitored anesthesia care. A surgical time-out was done. A full digital rectal exam was done and this did not reveal any significant anal lesions. The tip of the Olympus colonoscope was gently introduced through the anal orifice advanced with insufflation all the way to the cecum. The cecum was intubated. The cecum was identified by visualization of the ileocecal valve as well as the appendiceal orifice. The cecal mucosa was unremarkable. Photographic documentation was done. The scope was gradually withdrawn with careful examination of the entire colonic mucosa being done with scope withdrawal. The patient had adequate bowel prep so it was unlikely that any lesion may have been missed. The rectum was reached and there were no lesions seen. The anal canal was unremarkable. The scope was then withdrawn completely with desufflation. The patient tolerated procedure well. There were no immediate complications. She falls at average risk for colon cancer so her next colonoscopy may be in the next 10 years.
[2025-05-01 08:41] VITALS: BP 102/49; PULSE 65; RESP 16; TEMP 36.1; O2SAT 97
[2025-05-01 08:56] VITALS: BP 129/62; PULSE 0; RESP 16; TEMP 30.5; O2SAT 96
== END 2025-05-01 09:41 | disposition home or self-care (01) ==
PROVIDERS: PCP Internal Medicine; Visit Provider Surgery
PROC: 0DJD8ZZ Inspection of Lower Intestinal Tract, Via Natural or Artificial Opening Endoscopic (ICD-10-PCS; CPT 45378; principal; 2025-05-01 08:40)
DX: Z12.11 Encounter for screening for malignant neoplasm of colon (principal); E78.5 Hyperlipidemia, unspecified; E55.9 Vitamin D deficiency, unspecified; Z79.899 Other long term (current) drug therapy; Z98.890 Other specified postprocedural states
CPT/HCPCS: G0121; J2704

== ENCOUNTER → 2025-05-01 06:37 | Outpatient (BNV) | payer MEDICARE, BC, SELFPAY | PROVIDERS: PCP Internal Medicine; Visit Provider Surgery | DX: Z12.11 Encounter for screening for malignant neoplasm of colon (principal) | CPT/HCPCS: G0121 ==

== ENCOUNTER 2025-05-14 07:19 | Outpatient (REF) | payer MEDICARE, BC, SELFPAY ==
--- OUTSIDE RECORDS SUMMARY | 2025-05-14 07:21 | XMS_ITS | Patient Health Record ---
Author Organization [facility] Address [address] [place] [address] Care Team Providers Care Subway Train Operator Name Role Phone Solange Lora MD Primary Care Provider Fernando Acevedo Unavailable [phone] Reason For Referral No Information Medications Medication SIG (Take, Route, Frequency, Duration) Notes Start Date End Date Status Work Note . . . 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 . . 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 No Problems Problem Type SNOMED Code ICD Code Onset Dates Problem Status W/U Status Risk Notes Problem Pain in right foot ([id number] 107) Pain in right foot (M79.671) Active [...] Insured Coverage Start Date Coverage End Date [facility] [address] [place] [address] [id number] Radha Celeste Self - patient is the insured Medical (General) History Surgical History Surgery Date(Month/Year) Bun/L , Dislocated sesamoid/[place] 12/23 Josh w/german screw 01/30/2016 Hospitalization History Reason Date(Month/Year) [facility] CTR - Bunion Left Foot
[2025-05-14 10:05] LABS: MANUAL DIFF FLAG NO
[2025-05-14 10:20] LABS: Hematocrit 41.9 % (37.0-47.0); Hemoglobin 13.8 g/dl (12.0-16.0); Imm Gran Abs Auto 0.01 X10*3/uL (0.00-0.03); Imm Gran Pct Auto 0.2 % (0.0-0.4); Lymphocytes Absolute Auto 1.8 X10*3/uL (1.2-4.9); Mean Corpuscular HGB Conc 32.9 g/dl (31.0-35.0); Mean Corpuscular Hemoglobin 30.5 pg (27.0-33.0); Mean Corpuscular Volume 92.7 fL (80.0-98.0); NRBC Abs Auto 0.000 X10*3/uL (0.0-0.012); NRBC Pct Auto 0.0 /100WBC (0.0-0.2); Platelet Count 345 X10*3/uL (160-400); Red Blood Count 4.52 X10*6/uL (4.20-5.50); White Blood Count 5.8 X10*3/uL (4.8-10.8)
[2025-05-14 10:29] LABS: Appearance Urine Clear; Glucose Urine UA Negative (Negative); PH 7.0 (5.0-9.0); Specific Gravity - Urine 1.010 (1.005-1.025); UMIC TRIGGER UA YES
[2025-05-14 10:42] LABS: Alanine Aminotransferase 18 U/L (0-31); Albumin Level 4.4 g/dL (3.5-5.0); Alkaline Phosphatase 79 U/L (39-117); Anion Gap 10 (12-20); Aspartate Amino Transferase 27 U/L (5-31); Blood Urea Nitrogen 14 mg/dL (9-16); Calcium 8.8 mg/dL (8.4-10.2); Carbon Dioxide 26 mmol/L (22-29); Chloride 109 mmol/L (96-108); Cholesterol 216 mg/dL (<200); Estimated Glomerular Filt Rate > 60; HDL Cholesterol 49 mg/dL (>40); Potassium 4.5 mmol/L (3.3-5.1); Sodium 140 mmol/L (135-145); Total Protein 7.1 g/dL (6.5-8.0); Triglycerides 93 mg/dL (<150)
== END 2025-05-14 07:20 | disposition home or self-care (01) ==
LOC: HO.HMGCLDS 07:19
PROVIDERS: PCP Internal Medicine; Visit Provider Internal Medicine
DX: Z00.00 Encounter for general adult medical examination without abnormal findings (principal); E78.5 Hyperlipidemia, unspecified; E55.9 Vitamin D deficiency, unspecified
CPT/HCPCS: 36415; 80053; 80061; 81001; 82306; 84443; 85025

== ENCOUNTER 2025-05-14 12:29 | Outpatient (AMB) | payer BC, MEDICARE, SELFPAY ==
--- NOTE | 2025-05-14 12:44 | A.OFFVIS_ITS ---
Vital Signs 05/14/25 12:49 Height 5 ft 5 in Weight 124 lb BMI 20.6 BP 167/73 H Blood Pressure Location Rt brachial Position Sitting Pulse 66 Intake Visit Reasons: S/P colonoscopy Intake Note: Patient here s/p Colonoscopy on 05-01-2025. Reports procedure went well. Patient c/o: no concerns. Geology Professor Required: No Accompanied by: Spouse Allergies No Known Allergies (No Known Allergies*) Allergy (Verified 05/14/25 12:48) Medication List - Last Reconciled 05/14/25 by Carlos Delarosa MD cholecalciferol (vitamin D3) 25 mcg PO DAILY omega 9-tbb-ppi-fish oil 100-160-1,000 mg (Fish Oil) 1 cap PO DAILY sodium,potassium,mag sulfates 17.5-3.13-1.6 gram (Suprep Bowel Prep Kit) DILUTE; drink full amount early evening before AND next morning at least 2 hr before procedure; follow w 960 mL water PO HPI HPI S/P colonoscopy: Details: She underwent colonoscopy last 05/01/2025 for screening. She tolerated procedure well. She denies any abdominal complaints currently. She says she feels well overall. [facility] Medical History Hemorrhoids Upper respiratory infection Postmenopausal Vitamin D deficiency Hyperlipemia Dysplastic nevi Surgical History Hx of colonoscopy (05/01/25) Hx of rotator cuff surgery H/O colonoscopy S/P bunionectomy Family History Father No problems noted. Mother Ovarian cancer Social History Housing: House Alcohol intake: never Patient Tobacco Use Status: Never used Tobacco e-Cigarette/Vaping Use: Never Used service: No Current occupational status: retired Current occupation: rt handed Cognitive needs: No Hearing needs: No Vision needs: No Review of Systems Const Denies chills and Denies fever(s) Card Denies chest pain, Denies dyspnea and Denies dyspnea on exertion Resp Denies cough, Denies dyspnea and Denies dyspnea on exertion GI Denies hematochezia and Denies change in bowel habits Denies hematuria Musc Denies back pain and Denies limited range of motion Neuro Denies focal weakness and Denies convulsions Psych Denies depression and Denies mood swings Physical Exam Vital Signs: Last Vital Signs Pulse 66 05/14/25 12:49 BP 167/73 H 05/14/25 12:49 BMI result Body Mass Index 20.6 Const General: comfortable and no acute distress Resp Effort & Inspection: normal respiratory effort GI Palpation (GI): Soft to palpation, not firm and nontender Assessment & Plan Assessment & Plan (1) Colon cancer screening: Code(s): Z12.11 - Encounter for screening for malignant neoplasm of colon Category: Medical Plan: Status post colonoscopy. I explained to her the findings. She did not have any polyps or any lesions. She falls at average risk for colon cancer. In view of her age, this may be her last colonoscopy for screening. She can otherwise follow up with me on a p.r.n. basis Coding Level of Care Code Est Pt Level 2 (31317) Diagnoses Colon cancer screening Z12.11
[2025-05-14 12:49] VITALS: BP 167/73; PULSE 66; BMI 20.6
== END 2025-05-14 12:58 | disposition home or self-care (01) ==
LOC: HO.HGS 12:30
PROVIDERS: PCP Internal Medicine; Visit Provider Surgery
DX: Z12.11 Encounter for screening for malignant neoplasm of colon (principal)
CPT/HCPCS: 99212

== ENCOUNTER 2025-05-22 09:22 | Outpatient (REF) | payer MEDICARE, BC, SELFPAY | END 2025-05-22 09:23 | disposition home or self-care (01) | LOC: HO.LNP 09:22 | PROVIDERS: PCP Internal Medicine; Visit Provider Internal Medicine | DX: Z00.00 Encounter for general adult medical examination without abnormal findings (principal); Z12.4 Encounter for screening for malignant neoplasm of cervix; Z11.51 Encounter for screening for human papillomavirus (HPV); Z23 Encounter for immunization; E55.9 Vitamin D deficiency, unspecified; E78.5 Hyperlipidemia, unspecified; Z78.0 Asymptomatic menopausal state | CPT/HCPCS: 87626; 88175; 90471; 90677; 99397 ==

== ENCOUNTER 2025-05-22 09:22 | Outpatient (AMB) | payer MEDICARE, BC, SELFPAY ==
[2025-05-22 09:25] VITALS: BP 120/74; PULSE 73; RESP 18; TEMP 36.7; O2SAT 97; BMI 20.6
--- NOTE | 2025-05-22 09:25 | AM.OFFVISMDC ---
Intake Vital Signs 05/22/25 09:25 Height 5 ft 5 in Weight 124 lb BMI 20.6 BP 120/74 Blood Pressure Location Lt brachial Position Sitting Respiration 18 Pulse 73 Pulse Source Pulse Oximeter Temp 98.1 F Temp Source Oral Pulse Oximetry (%) 97 Oxygen Delivery Method Room Air Intake Visit Reasons: SWV [id number] Allergies No Known Allergies (No Known Allergies*) Allergy (Verified 05/22/25 09:29) PFSH Medical History Hemorrhoids Upper respiratory infection Postmenopausal Vitamin D deficiency Hyperlipemia Dysplastic nevi Surgical History Hx of colonoscopy (05/01/25) Hx of rotator cuff surgery H/O colonoscopy S/P bunionectomy Family History Father No problems noted. Mother Ovarian cancer Social History Housing: House Alcohol intake: never Patient Tobacco Use Status: Never used Tobacco e-Cigarette/Vaping Use: Never Used service: No Current occupational status: retired Current occupation: rt handed Cognitive needs: No Hearing needs: No Vision needs: No Coding
--- OUTSIDE RECORDS SUMMARY | 2025-05-22 09:49 | XMS_ITS | Patient Health Record ---
Author Organization [facility] Address [address] [place] [address] Care Team Providers Care Strategic Alliances Manager Name Role Phone Solange Lora MD Primary Care Provider Fernando Acevedo Unavailable [phone] Reason For Referral No Information Medications Medication SIG (Take, Route, Frequency, Duration) Notes Start Date End Date Status Work Note . . . 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 . . 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 No Problems Problem Type SNOMED Code ICD Code Onset Dates Problem Status W/U Status Risk Notes Problem Pain in right foot ([id number] 107) Pain in right foot (M79.671) Active [...] Insured Coverage Start Date Coverage End Date [facility] [address] [place] [address] [id number] Radha Celeste Self - patient is the insured Medical (General) History Surgical History Surgery Date(Month/Year) Bun/L , Dislocated sesamoid/[place] 12/23 Josh w/german screw 01/30/2016 Hospitalization History Reason Date(Month/Year) [facility] CTR - Bunion Left Foot
--- NOTE | 2025-05-22 09:55 | A.OFFPC_ITS ---
Vital Signs 05/22/25 09:25 Height 5 ft 5 in Weight 124 lb BMI 20.6 BP 120/74 Blood Pressure Location Lt brachial Position Sitting Respiration 18 Pulse 73 Pulse Source Pulse Oximeter Temp 98.1 F Temp Source Oral Pulse Oximetry (%) 97 Oxygen Delivery Method Room Air Intake Visit Reasons: PE/secondary covers Intake Note: Pt is here today for PE. Allergies No Known Allergies (No Known Allergies*) Allergy (Verified 05/22/25 09:55) Medication List - Last Reconciled 05/22/25 by Solange Lora MD cholecalciferol (vitamin D3) 25 mcg PO DAILY omega 5-exq-ryy-fish oil 100-160-1,000 mg (Fish Oil) 1 cap PO DAILY sodium,potassium,mag sulfates 17.5-3.13-1.6 gram (Suprep Bowel Prep Kit) DILUTE; drink full amount early evening before AND next morning at least 2 hr before procedure; follow w 960 mL water PO Tobacco use date assessed: 05/22/25 Fall risk assessment: No Falls in past year Last assessed Fall Risk: 05/22/25 Dental Screening Dental Screen Date: 05/22/25 Did you have a dental visit in the last 12 months?: Yes Did you have a dental problem in the last 6 months where you did not have access to dental care?: No Was dental information given to patient?: Patient has dentist HPI PE/secondary covers HPI Details Pt presents for PE PFSH Medical History Hemorrhoids Upper respiratory infection Postmenopausal Vitamin D deficiency Hyperlipemia Dysplastic nevi Surgical History Hx of colonoscopy (05/01/25) Hx of rotator cuff surgery H/O colonoscopy S/P bunionectomy Family History Father No problems noted. Mother Ovarian cancer Social History Housing: House Alcohol intake: never Patient Tobacco Use Status: Never used Tobacco e-Cigarette/Vaping Use: Never Used service: No Current occupational status: retired Current occupation: rt handed Current occupational exposures/hazards: No Cognitive needs: No Hearing needs: No Vision needs: No Questionnaire Thrive Questionnaire Date Thrive assessed: 05/22/25 AUDIT C Alcohol Use Questionnaire (AUDIT-C) 1. How often do you have a drink containing alcohol?: Never 3. How often do you have six or more drinks on one occasion?: Never Total Score: 0 DERICK-7 AMB Questionnaire DERICK-7 Date DERICK - 7 assessed: 12/18/24 Source: Developed by Drs. Jayme Pena, Tressa Carty, Zackary Newman and colleagues, with an educational raúl from [email or web address]. Review of Systems Const All systems reviewed & are unremarkable except as noted in HPI and below Eyes Reports no additional complaints ENT Reports no additional complaints Card Reports no additional complaints Resp Reports no additional complaints GI Reports no additional complaints Reports no additional complaints Physical exam (Primary Care) Vital Signs: Last Vital Signs Temp 98.1 F 05/22/25 09:25 Pulse 73 05/22/25 09:25 Resp 18 05/22/25 09:25 BP 120/74 05/22/25 09:25 Pulse Ox 97 05/22/25 09:25 Oxygen Delivery Method Room Air 05/22/25 09:25 BMI result Body Mass Index 20.6 Tobacco/Smoking Status: Tobacco use Status Tobacco use date assessed 05/22/25 05/22/25 09:58 Patient Tobacco Use Status Never used Tobacco 05/22/25 09:58 e-Cigarette/Vaping Use Never Used 05/22/25 09:58 Thrive Assessment: Date of Thrive Assessment Date Thrive assessed 05/22/25 05/22/25 09:58 Const General: no acute distress HENND Head: Yes normal to inspection General nose exam: Normal external nose present Mouth: Normal oral and palatal mucosa present Eyes General: appearance normal, both eyes and all related structures Neck Neck: Yes no lymphadenopathy and Yes supple Resp Effort & Inspection: normal respiratory effort Auscultation: clear to auscultation bilaterally Cardio Rhythm: regular rhythm Heart sounds: S1 normal heart sound present and S2 normal heart sound present GI Inspection: Yes normal to inspection Palpation (GI): Soft to palpation Percussion: Yes normal to percussion Auscultation: normal bowel sounds Speculum Exam - Vagina: vagina atrophic Speculum Exam - Cervix: normal appearance of the cervix Bimanual exam- vagina & uterus: normal bimanual exam Immunizations pneumoc 20-yue conj-dip cr(PF) 0.5 mL IM syringe Performing Provider: Solange Lora MD Performing Location: [facility] [place] [facility] Administered by: ASHA Rowan on 05/22/25 10:31 Dose Route Admin Location Dispensed Lot Number Expiration Date NDC [employer] 0.5 mL IM Left Deltoid 0.5 mL [id number] 05/24/26 [id number] ([employer]) Total Dispensed Waste 0.5 mL 0 % VIS Given Date VIS Provided VIS Publication Date 05/22/25 Single Vaccine 25 Eligibility Eligibility Date Funding Source Not [facility] Eligible 05/22/25 Private Coding Level of Care Code Est Pt Prev Care >65y(06796) Diagnoses Postmenopausal Z78.0 Hyperlipemia E78.5 Vitamin D deficiency E55.9 Annual physical exam Z00.00 Assessment & Plan Assessment & Plan (1) Postmenopausal: Code(s): Z78.0 - Asymptomatic menopausal state Category: Medical Plan: Check DEXA (2) Hyperlipemia: Comment: refused statins 05/15 Code(s): E78.5 - Hyperlipidemia, unspecified Category: Medical Plan: Patient used to take atorvastatin from [place]. She will restart 10 mg of atorvastatin check lipid profile in 2 months (3) Vitamin D deficiency: Comment: cont vit D Code(s): E55.9 - Vitamin D deficiency, unspecified Category: Medical Plan: Continue vitamin-D supplement (4) Annual physical exam: Code(s): Z00.00 - Encounter for general adult medical examination without abnormal findings Category: Medical Plan: Well-balanced diet regular exercise discussed with the patient she is up-to-date with the mammogram colonoscopy and Pap smear was done today Orders: Orders Pneumococcal 20 Immunization Today Z23 - Encounter for immunization Lipid Panel 2 Months E55.9 - Vitamin D deficiency, unspecified, E78.5 - Hyperlipidemia, unspecified, Z00.00 - Encounter for general adult medical examination without abnormal findings Comprehensive Met. Panel 1 Year E55.9 - Vitamin D deficiency, unspecified, E78.5 - Hyperlipidemia, unspecified, Z00.00 - Encounter for general adult medical examination without abnormal findings Vitamin D 25-OH Total 1 Year E55.9 - Vitamin D deficiency, unspecified, E78.5 - Hyperlipidemia, unspecified, Z00.00 - Encounter for general adult medical examination without abnormal findings Pap Smear Today Z00.00 - Encounter for general adult medical examination without abnormal findings XR DEXA axial skeleton Today Z78.0 - Asymptomatic menopausal state Complete Blood Count Auto Diff 1 Year E55.9 - Vitamin D deficiency, unspecified, E78.5 - Hyperlipidemia, unspecified, Z00.00 - Encounter for general adult medical examination without abnormal findings Lipid Panel 1 Year E55.9 - Vitamin D deficiency, unspecified, E78.5 - Hyperlipidemia, unspecified, Z00.00 - Encounter for general adult medical examination without abnormal findings TSH reflex Free T4 1 Year E55.9 - Vitamin D deficiency, unspecified, E78.5 - Hyperlipidemia, unspecified, Z00.00 - Encounter for general adult medical examination without abnormal findings Medications: New atorvastatin (Lipitor) 10 mg PO DAILY 90 tabs 3RF
== END 2025-05-22 10:32 | disposition home or self-care (01) ==
PROVIDERS: PCP Internal Medicine; Visit Provider Internal Medicine
DX: Z00.00 Encounter for general adult medical examination without abnormal findings (principal); E78.5 Hyperlipidemia, unspecified; E55.9 Vitamin D deficiency, unspecified; Z78.0 Asymptomatic menopausal state; Z23 Encounter for immunization

== ENCOUNTER 2025-07-12 07:52 | Outpatient (REF) | payer MEDICARE, BC, SELFPAY ==
--- NOTE | ~2025-07-12 | MM_ITS ---
EXAMINATION: DXA BONE DENSITY AXIAL HISTORY: Z78.0 - Asymptomatic menopausal state TECHNIQUE: Cyphort Dual energy absorptiometry (DEXA) of the lumbar spine, total left hip, and femoral neck was performed. COMPARISON: Comparison is made with the prior examination dated 06/04/2021. FINDINGS: The bone mineral density of the lumbar spine is 1.093 g/cm2, corresponding to a T-score of -0.6, and a Z-score of 1.4. This is indicative of normal bone mineral density. This represents a BMD change of 5.3% compared to the prior exam. This is not statistically significant. The bone mineral density of the left total hip is 0.918 g/cm2, corresponding to a T-score of -0.7, and a Z-score of 1.1. This is indicative of normal bone mineral density. This represents a BMD change of 2.0% compared to the prior exam. This is not statistically significant. The bone mineral density of the left femoral neck is 0.794 g/cm2, corresponding to a T-score of -1.8, and a Z-score of 0.2. This is indicative of osteopenia. This represents a BMD change of 1.4% compared to the prior exam. FRACTURE RISK: The FRAX index suggests a ten year probability of major osteoporotic fracture of 11.4%, and of hip fracture 2.2%. MM/XR DEXA axial skeleton IMPRESSION: Based on bone mineral density, and according to World Health Organization (WHO) criteria, the diagnosis is consistent with osteopenia. Statistically, 68% of repeat scans fall within 1 SD (+/- 0.010 g/cm2 for AP spine L1-L4) and 1 SD (+/- 0.012 g/cm2 for femur total) FRAX is a trademark of the [employer], a World Health Organization (WHO) Collaborating Center. Electronically signed by: Jayme Noguera MD 07/12/2025 08:23 AM EDT
--- OUTSIDE RECORDS SUMMARY | 2025-07-12 07:58 | XMS_ITS | Patient Health Record ---
Author Organization [facility] Address [address] [place] [address] Care Team Providers Care Flying Squad Salesperson Name Role Phone Solange Lora MD Primary Care Provider Fernando Acevedo Unavailable [phone] Reason For Referral No Information Medications Medication SIG (Take, Route, Frequency, Duration) Notes Start Date End Date Status Work Note . . . 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 . . 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 No Problems Problem Type SNOMED Code ICD Code Onset Dates Problem Status W/U Status Risk Notes Problem Pain in right foot (472823547102 [id number]) Pain in right foot (M79.671) Active [...] Insured Coverage Start Date Coverage End Date [facility] [address] [place] [address] [id number] Radha Celeste Self - patient is the insured Medical (General) History Surgical History Surgery Date(Month/Year) Bun/L , Dislocated sesamoid/German 12/23 Josh w/german screw 01/30/2016 Hospitalization History Reason Date(Month/Year) [facility] - Bunion Left Foot
== END 2025-07-12 07:53 | disposition home or self-care (01) ==
LOC: HO.MAMMO 07:52
PROVIDERS: PCP Internal Medicine; Visit Provider Internal Medicine
DX: Z13.820 Encounter for screening for osteoporosis (principal); Z78.0 Asymptomatic menopausal state
CPT/HCPCS: 77080

== ENCOUNTER → 2025-07-12 08:15 | Outpatient (BNV) | payer MEDICARE, BC, SELFPAY | PROVIDERS: PCP Internal Medicine; Visit Provider Radiology Diagnostic Radiology | DX: E28.39 Other primary ovarian failure (principal) | CPT/HCPCS: 77080 ==

== ENCOUNTER 2025-07-23 07:21 | Outpatient (REF) | payer MEDICARE, BC, SELFPAY ==
--- OUTSIDE RECORDS SUMMARY | 2025-07-23 07:25 | XMS_ITS | Patient Health Record ---
Author Organization [facility] Address [address] [place] [address] Care Team Providers Care Strategy Lead Name Role Phone Solange Lora MD Primary Care Provider Fernando Acevedo Unavailable [phone] Reason For Referral No Information Medications Medication SIG (Take, Route, Frequency, Duration) Notes Start Date End Date Status Work Note . . . 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 . . 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 No Problems Problem Type SNOMED Code ICD Code Onset Dates Problem Status W/U Status Risk Notes Problem Pain in right foot ([id number] 107) Pain in right foot (M79.671) Active [...] Insured Coverage Start Date Coverage End Date [facility] [address] [place] [address] [id number] Radha Celeste Self - patient is the insured Medical (General) History Surgical History Surgery Date(Month/Year) Bun/L , Dislocated sesamoid/German 12/23 Josh w/german screw 01/30/2016 Hospitalization History Reason Date(Month/Year) [facility] - Bunion Left Foot
[2025-07-23 10:40] LABS: Cholesterol 141 mg/dL (<200); HDL Cholesterol 44 mg/dL (>40); Triglycerides 64 mg/dL (<150)
== END 2025-07-23 07:22 | disposition home or self-care (01) ==
LOC: HO.HMGCLDS 07:21
PROVIDERS: PCP Internal Medicine; Visit Provider Internal Medicine
DX: Z00.00 Encounter for general adult medical examination without abnormal findings (principal); E55.9 Vitamin D deficiency, unspecified; E78.5 Hyperlipidemia, unspecified
CPT/HCPCS: 36415; 80061